=== PATIENT | female | born 1955 | race Caucasian/White ===

== ENCOUNTER → 2016-12-06 | Outpatient (CLI) | payer BC, OTHER | LOC: MW.CHFP 14:31 | PROVIDERS: ATTEND Physician Assistant | DX: R39.9 Unspecified symptoms and signs involving the genitourinary system (principal) | CPT/HCPCS: 81001; 87086 ==

== ENCOUNTER 2017-10-09 02:17 | Observation (INO) | payer OTHER ==
[2017-10-09] MEDS ORDERED: Nitroglycerin 2% Oint 1 GM UD Packet TOP ONE (02:29)
[2017-10-09] MEDS ORDERED: Aspirin 81 MG Tab.Chew PO ONE (02:29)
[2017-10-09] MEDS ORDERED: 50% Dextrose in Water 50 ML Syringe IVPUSH ONE (02:29)
--- NOTE | 2017-10-09 02:29 | EDM.PDOC ---
ED HPI GENERAL MEDICAL PROBLEM - General Chief Complaint: Chest Pain Stated Complaint: CHEST PAIN Time Seen by Provider: 10/09/17 02:27 - History of Present Illness INITIAL COMMENTS - FREE TEXT/NARRATIVE: HISTORY AND PHYSICAL: History of present illness: Patient is 61-year-old female history of hypertension diabetes who states she's also had heart attack who presents with concern chest pain off-and-on all day with palpitations and associated nausea. She denies diaphoresis Review of systems: As per history of present illness and below otherwise all systems reviewed and negative. Past medical history: As per history of present illness and as reviewed below otherwise noncontributory. Surgical history: As per history of present illness and as reviewed below otherwise noncontributory. Social history: No reported history of drug or alcohol abuse. Family history: As per history of present illness and as reviewed below otherwise noncontributory. Physical exam: HEENT: Atraumatic, normocephalic, pupils reactive, mild conjunctival pallor no scleral icterus, mucous membranes moist, throat clear, neck supple, nontender, trachea midline. Lungs: Clear to auscultation, breath sounds equal bilaterally, chest nontender. Heart: S1S2, regular, negative for clicks, rubs, or JVD. Abdomen: Soft, nondistended, nontender. Negative for masses or hepatosplenomegaly. Negative for costovertebral tenderness. Pelvis: Stable nontender. Genitourinary: Deferred. Rectal: Deferred. Extremities: Atraumatic, negative for cords or calf pain. Neurovascular unremarkable. Neuro: Awake, alert, oriented. Cranial nerves II through XII unremarkable. Cerebellum unremarkable. Motor and sensory unremarkable throughout. Exam nonfocal. Diagnostics: CBC CMP PT/INR troponin and BNP chest x-ray EKG Therapeutics: The O2 monitor Nitropaste 1 inch to chest wall aspirin 324 mg by mouth Impression: #1 chest pain #2 history of VA #3 history of diabetes #4 history of hypertension Definitive disposition and diagnosis as appropriate pending reevaluation and review of above. denies pain Pain Score (Numeric/FACES): 0 - Related Data Allergies Allergy/AdvReac Type Severity Reaction Status Date / Time No Known Allergies Allergy Verified 10/09/17 02:23 Home Meds: Home Meds Insulin Aspart [NovoLOG] 20 units PO BID 05/18/14 [History] PARoxetine HCl [Paxil] 40 mg PO BEDTIME 05/20/14 [History] Simvastatin [Zocor] 80 mg PO BEDTIME 05/20/14 [History] Multivitamin [Multi-Vitamin Daily] 1 tab PO DAILY 08/02/14 [History] Potassium Gluconate 595 mg PO DAILY 08/02/14 [History] Potassium Chloride 20 meq PO DAILY #30 tablet.er 08/04/14 [Rx] Aspirin 81 mg PO DAILY 10/09/17 [History] Past Medical History Cardiovascular History: Reports: Heart Failure, High Cholesterol, Hypertension Other Gastrointestinal History: necrosis Psychiatric History: Reports: Anxiety Endocrine/Metabolic History: Reports: Diabetes, Type II Hematologic History: Reports: Anemia, Blood Transfusion(s) Other Hematologic History: 2 blood transfusions in lifetime - Infectious Disease History Infectious Disease History: Reports: Chicken Pox, Measles - Past Surgical History Cardiovascular Surgical History: Reports: None GI Surgical History: Reports: None Endocrine Surgical History: Reports: None Social & Family History - Family History Family Medical History: Noncontributory - Tobacco Use Smoking Status *Q: Current Every Day Smoker Years of Tobacco use: 46 Packs/Tins Daily: 1 Used Tobacco, but Quit: Yes Month Tobacco Last Used: 02/2014 Second Hand Smoke Exposure: No - Alcohol Use Days Per Week of Alcohol Use: 0 - Recreational Drug Use Recreational Drug Use: No ED ROS GENERAL - Review of Systems Review Of Systems: ROS reveals no pertinent complaints other than HPI. ED EXAM, GENERAL - Physical Exam Exam: See Below (dictation) Course - Vital Signs Last Recorded V/S: Last Vital Signs Temp 36.1 C 10/09/17 02:25 Pulse 88 10/09/17 02:25 Resp 18 10/09/17 02:25 BP 191/100 H 10/09/17 02:25 Pulse Ox 100 10/09/17 02:25 - Orders/Labs/Meds Orders: Active Orders 24 hr Category Date Time Status EKG Documentation Completion [RC] STAT Care 10/09/17 02:29 Active Chest 1V Frontal [CR] Stat Exams 10/09/17 02:29 Taken CKMB [CHEM] Stat Lab 10/09/17 02:25 Received COMPREHENSIVE METABOLIC PN,CMP [CHEM] Stat Lab 10/09/17 02:25 Received TROPONIN I [CHEM] Stat Lab 10/09/17 02:25 Received Sodium Chloride 0.9% [Normal Saline] 1,000 ml Med 10/09/17 02:30 Active IV ASDIRECTED Medication Orders Sodium Chloride (Normal Saline) 1,000 mls @ 125 mls/hr IV ASDIRECTED BELLA Last Admin: 10/09/17 02:40 Dose: 125 mls/hr Labs: Laboratory Tests 10/09/17 10/09/17 10/09/17 Range/Units 02:25 02:25 02:27 WBC 6.83 (4.0-11.0) K/uL RBC 3.55 L (4.30-5.90) M/uL Hgb 10.6 L (12.0-16.0) g/dL Hct 30.4 L (36.0-46.0) % MCV 85.6 (80.0-98.0) fL MCH 29.9 (27.0-32.0) pg MCHC 34.9 (31.0-37.0) g/dL RDW Std Deviation 41.0 (28.0-62.0) fl RDW Coeff of Saul 13 (11.0-15.0) % Plt Count 161 (150-400) K/uL MPV 9.00 (7.40-12.00) fL Neut % (Auto) 60.1 (48.0-80.0) % Lymph % (Auto) 26.2 (16.0-40.0) % [place] % (Auto) 7.5 (0.0-15.0) % Eos % (Auto) 5.9 (0.0-7.0) % Baso % (Auto) 0.3 (0.0-1.5) % Neut # (Auto) 4.1 (1.4-5.7) K/uL Lymph # (Auto) 1.8 (0.6-2.4) K/uL [place] # (Auto) 0.5 (0.0-0.8) K/uL Eos # (Auto) 0.4 (0.0-0.7) K/uL Baso # (Auto) 0.0 (0.0-0.1) K/uL Nucleated RBC % 0.0 /100WBC Nucleated RBCs # 0 K/uL POC Glucose 64 (60-110) mg/dL B-Natriuretic Peptide 592 H (<100) PG/ML 10/09/17 Range/Units 03:06 WBC (4.0-11.0) K/uL RBC (4.30-5.90) M/uL Hgb (12.0-16.0) g/dL Hct (36.0-46.0) % MCV (80.0-98.0) fL MCH (27.0-32.0) pg MCHC (31.0-37.0) g/dL RDW Std Deviation (28.0-62.0) fl RDW Coeff of Saul (11.0-15.0) % Plt Count (150-400) K/uL MPV (7.40-12.00) fL Neut % (Auto) (48.0-80.0) % Lymph % (Auto) (16.0-40.0) % [place] % (Auto) (0.0-15.0) % Eos % (Auto) (0.0-7.0) % Baso % (Auto) (0.0-1.5) % Neut # (Auto) (1.4-5.7) K/uL Lymph # (Auto) (0.6-2.4) K/uL [place] # (Auto) (0.0-0.8) K/uL Eos # (Auto) (0.0-0.7) K/uL Baso # (Auto) (0.0-0.1) K/uL Nucleated RBC % /100WBC Nucleated RBCs # K/uL POC Glucose 151 H (60-110) mg/dL B-Natriuretic Peptide (<100) PG/ML Meds: Medications Generic Name Dose Route Start Last Admin Trade Name Freq PRN Reason Stop Dose Admin Sodium Chloride 1,000 mls @ 125 mls/hr 10/09/17 02:30 10/09/17 02:40 Normal Saline IV 125 mls/hr ASDIRECTED BELLA Administration Discontinued Medications Generic Name Dose Route Start Last Admin Trade Name Freq PRN Reason Stop Dose Admin Aspirin 324 mg 10/09/17 02:29 10/09/17 02:41 Aspirin PO 10/09/17 02:30 324 mg ONETIME ONE Administration Dextrose/Water 25 ml 10/09/17 02:29 10/09/17 02:46 Dextrose 50% In Water IVPUSH 10/09/17 02:30 25 ml ONETIME ONE Administration Furosemide 40 mg 10/09/17 03:07 10/09/17 03:11 Lasix IVPUSH 10/09/17 03:08 40 mg NOW ONE Administration Nitroglycerin 1 gm 10/09/17 02:29 10/09/17 02:53 Nitro-Bid 2% TOP 10/09/17 02:30 1 gm ONETIME ONE Administration Departure - Departure Time of Disposition: 03:59 Disposition: Refer to Observation Condition: Good Clinical Impression: Chest pain, CHF (congestive heart failure) - Discharge Information Referrals: Srinivas Rivera MD [Primary Care Provider] - Forms: ED Department Discharge - My Orders Last 24 Hours: My Active Orders 10/09/17 02:25 CKMB [CHEM] Stat COMPREHENSIVE METABOLIC PN,CMP [CHEM] Stat TROPONIN I [CHEM] Stat 10/09/17 02:29 EKG Documentation Completion [RC] STAT Chest 1V Frontal [CR] Stat 10/09/17 02:30 Sodium Chloride 0.9% [Normal Saline] 1,000 ml IV ASDIRECTED - Assessment/Plan Last 24 Hours: My Active Orders 10/09/17 02:25 CKMB [CHEM] Stat COMPREHENSIVE METABOLIC PN,CMP [CHEM] Stat TROPONIN I [CHEM] Stat 10/09/17 02:29 EKG Documentation Completion [RC] STAT Chest 1V Frontal [CR] Stat 10/09/17 02:30 Sodium Chloride 0.9% [Normal Saline] 1,000 ml IV ASDIRECTED
[2017-10-09] MEDS ORDERED: Sodium Chloride 0.9% 1,000 ML IV SCH (02:30)
[2017-10-09] MEDS ORDERED: Furosemide 40 MG/4 ML VIAL IVPUSH ONE (03:07)
[2017-10-09 04:00] LABS: CHLORIDE,CL 108 mmol/L (98-110); SODIUM,NA 142 mmol/L (136-146)
[2017-10-09] MEDS ORDERED: Acetaminophen 325 MG Tab PO PRN (05:32)
[2017-10-09] MEDS ORDERED: Sodium Chloride 0.9% 2.5 ML Syringe FLUSH PRN ×2 (05:33→09:02)
[2017-10-09] MEDS ORDERED: Sodium Chloride 0.9% 10 ML Syringe FLUSH PRN ×2 (05:33→09:02)
[2017-10-09] MEDS: Insulin Aspart 100 Units/ML 3 ML Pen SUBCUT SCH ×3 (07:00→17:09)
--- NOTE | 2017-10-09 08:58 | PCM.HP ---
H&P History of Present Illness - General Date of Service: 10/09/17 Admit Problem/Dx: Admission Diagnosis/Problem Admission Diagnosis/Problem Chest pain - History of Present Illness Initial Comments - Free Text/Narative: This is a 61-year-old female that is presenting with chest pain that is pressure in nature that started last night while the patient went to sleep. Patient states that she awoke with chest discomfort and pressure that was not going away. Patient had taken an aspirin prior to going to sleep. Due to the fact that the pain was not dissipating patient became increasingly anxious as she does have a significant past medical history of anxiety and there is further compounded the symptoms and the patient came in to be assessed in the ER. As stated earlier patient had does have a significant past medical history of anxiety along with a medical history of type 2 diabetes and hyperlipidemia for which she is taking Prozac 16 for the anxiety, insulin for her diabetes and a statin medication for her high cholesterol. Patient states that she does not have any history of congestive heart failure, hypertension, or any known [place] related history. Patient denies any shortness of breath, any dyspnea on exertion , any pillow orthopnea, or any excessive fluid retention type symptoms. Discharge Summary Date of admission: 10/09/2017 Date of discharge: 10/09/2017 Admitting diagnosis: #1. Acute coronary syndrome rule out secondary to chest pain #2. Possible CHF exacerbation #3. Acute versus chronic kidney disease #4. Evaluation of pleural plaques #5. Significant past medical history of type 2 diabetes, hyperlipidemia, anxiety Discharge diagnoses: #1. Acute coronary syndrome ruled out troponins negative 3 #2. Possible congestive heart failure exacerbation versus acute on chronic kidney disease due to elevation of creatinine function and bilateral pitting edema patient to have this assessed in an outpatient setting tomorrow as the patient wanted to be discharged tonight. #3. Bilateral nodules appreciated by radiology on chest CT, recommendation is reevaluation in 3-6 months with another chest CT. #4. Echocardiogram has been done, results will not be in until likely tomorrow. #5. Significant past medical history of type 2 diabetes, hyperlipidemia, anxiety Consultations: None Procedures: None Hospitalization course: Patient was admitted for ACS rule out, troponins were negative 3, patient's chest x-ray did show pleural plaque a CT scan was done which indicated bilateral nodules that simply need to be follow-up in the next 3 -6 months outpatient. Patient also has a nonobstructive nephrolithiasis appreciated on the chest CT. Patient has an echocardiogram done however the results have not come in as of yet. Patient's creatinine function has been the biggest issue at this point in time we are unsure whether her creatinine of greater than 3 is acute versus chronic at this point in time. We have asked the patient to stay 1 night so that we could fully assess the patient's creatinine function and see whether this was chronic in nature. However the patient was pretty adamant about going home and stated that she would follow up with a primary care physician tomorrow in an outpatient setting to ensure that appropriate follow-up has been done for her creatinine function. Concern is the patient has received a total of 80 mg of IV Lasix and if the patient's creatinine function improves and this is likely secondary to congestive heart failure and if the patient's creatinine function stays a same or gets worse then we'll possibly looking at a chronic kidney disease related issue which needs to be closely watched and appropriately followed up with. She will be seeing Dr. Berry tomorrow on 10/10/2017 for assessment of her creatinine function. Disposition on discharge: Home Condition on discharge: Stable Discharge medications: Continuation of home medication Follow-up instructions: Dr. Dae Berry, 10/10/2017 for close follow-up, as well as PCP follow-up at a later time frame. Onset of Symptoms: Reports: Sudden denies pain Pain Score (Numeric/FACES): 0 - Related Data Allergies/Adverse Reactions: Allergies Allergy/AdvReac Type Severity Reaction Status Date / Time No Known Allergies Allergy Verified 10/09/17 02:23 Home Medications: Home Meds Insulin Aspart [NovoLOG] 20 units PO BID 05/18/14 [History] PARoxetine HCl [Paxil] 40 mg PO BEDTIME 05/20/14 [History] Simvastatin [Zocor] 80 mg PO BEDTIME 05/20/14 [History] Multivitamin [Multi-Vitamin Daily] 1 tab PO DAILY 08/02/14 [History] Potassium Gluconate 595 mg PO DAILY 08/02/14 [History] Potassium Chloride 20 meq PO DAILY #30 tablet.er 08/04/14 [Rx] Aspirin 81 mg PO DAILY 10/09/17 [History] Past Medical History HEENT History: Reports: Cataract Cardiovascular History: Reports: Heart Failure, High Cholesterol, Hypertension Respiratory History: Reports: None Other Gastrointestinal History: necrosis Genitourinary History: Reports: None 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: Musculoskeletal History: Reports: None Neurological History: Reports: None Psychiatric History: Reports: Anxiety Endocrine/Metabolic History: Reports: Diabetes, Type II Hematologic History: Reports: Anemia, Blood Transfusion(s) Other Hematologic History: 2 blood transfusions in lifetime Immunologic History: Reports: None Oncologic (Cancer) History: Reports: None Dermatologic History: Reports: None - Infectious Disease History Infectious Disease History: Reports: Chicken Pox, Measles - Past Surgical History Cardiovascular Surgical History: Reports: None GI Surgical History: Reports: None Endocrine Surgical History: Reports: None Social & Family History - Family History Family Medical History: Noncontributory - Tobacco Use Smoking Status *Q: Current Every Day Smoker Years of Tobacco use: 46 Packs/Tins Daily: 1 Used Tobacco, but Quit: Yes Month Tobacco Last Used: 02/2014 Second Hand Smoke Exposure: No - Caffeine Use Caffeine Use: Reports: Soda - Alcohol Use Days Per Week of Alcohol Use: 0 - Recreational Drug Use Recreational Drug Use: No H&P Review of Systems - Review of Systems: Review Of Systems: ROS reveals no pertinent complaints other than HPI. Exam - Exam Exam: See Below - Vital Signs Vital Signs: Last Vital Signs Temp 37.1 C 10/09/17 08:00 Pulse 85 10/09/17 08:00 Resp 18 10/09/17 08:00 BP 144/98 H 10/09/17 08:00 Pulse Ox 97 10/09/17 08:00 Weight: 71.7 kg - Exam General: Alert, Oriented, Cooperative Neck: Supple Lungs: Clear to Auscultation, Normal Respiratory Effort Cardiovascular: Regular Rate, Regular Rhythm GI/Abdominal Exam: Normal Bowel Sounds, Non-Tender Extremities: Normal Inspection, Pedal Edema - Patient Data Lab Results Last 24 hrs: Laboratory Results - last 24 hr 10/09/17 10/09/17 10/09/17 Range/Units 04:56 07:35 08:17 POC Glucose 82 74 (60-110) mg/dL Troponin I < 0.050 (0.000-0.056) ng/mL Result Diagrams: 10/09/17 02:25 10/09/17 02:25 *Q Meaningful Use (ADM) - VTE *Q VTE Criteria *Q: - Stroke *Q Stroke Criteria *Q: - AMI *Q AMI Criteria *Q: Problem List Initiated/Reviewed/Updated: Yes Orders Last 24hrs: Active Orders 24 hr Category Date Time Status Blood Glucose Check, Bedside [RC] TIDAC Care 10/09/17 07:00 Active Telemetry Monitoring [Cardiac Monitoring] [RC] Q8H Care 10/09/17 04:22 Active ADA Diabetic [[employer] Diet] [DIET Diet 10/09/17 Breakfast Active ] TROPONIN I [CHEM] Q6H Lab 10/09/17 14:30 Ordered Acetaminophen [Tylenol] Med 10/09/17 05:32 Active 650 mg PO Q6H PRN Insulin Aspart [NovoLOG] Med 10/09/17 07:30 Active See Protocol SUBCUT TIDAC Sodium Chloride 0.9% [Saline Flush] Med 10/09/17 05:33 Active 10 ml FLUSH ASDIRECTED PRN Sodium Chloride 0.9% [Saline Flush] Med 10/09/17 05:33 Active 2.5 ml FLUSH ASDIRECTED PRN Convert IV to Saline Lock [OM.PC] Routine Oth 10/09/17 05:33 Ordered Medication Orders Acetaminophen (Tylenol) 650 mg PO Q6H PRN PRN Reason: Pain Insulin Aspart (Novolog) 0 unit SUBCUT TIDAC BELLA PRN Reason: Protocol Sodium Chloride (Saline Flush) 10 ml FLUSH ASDIRECTED PRN PRN Reason: Keep Vein Open Sodium Chloride (Saline Flush) 2.5 ml FLUSH ASDIRECTED PRN PRN Reason: Keep Vein Open Assessment/Plan Comment:: This is a 7-year-old female presenting with acute chest pain/pressure overnight here for a acute coronary syndrome rule out and possible CHF component. Assessment/plan: #1. Chest pain pressure type in symptom acute coronary syndrome rule out -Patient to get troponin 3, echocardiogram, EKG/cardiac monitoring to ensure no acute [place]/ischemic related event #2. Possible congestive heart failure component with a mildly elevated BNP -Patient has received 2 doses of Lasix however we will be holding off any further dose of Lasix as the patient does have an elevated creatinine level of greater than 3.0 this is concerning as the patient's 2016 creatinine level was 1.6 we are unsure if the patient has a chronic kidney insufficiency-type symptoms or is this acute in nature. -We have advised the patient that despite the troponins being negative that she should stay overnight to fully evaluate the patient's possible fluid retention versus her possible acute or chronic kidney related dysfunction. However the patient states that she wants to go home if the troponins are negative 3 and follow up with her primary care physician. #3. Acute versus chronic kidney disease with a current creatinine level of greater than 3.0 and the last level being 1.6 in 2016. #4. Evaluation for pleural plaques seen on chest x-ray -Patient to get a CT of the chest to assess for etiology decision will be made once chest CT comes back.
[2017-10-09] MEDS ORDERED: Ondansetron 4 MG/2 ML SDV IVPUSH PRN (09:02)
[2017-10-09] MEDS ORDERED: Morphine 2 MG/ML Syringe IVPUSH PRN (09:02)
[2017-10-09] MEDS ORDERED: Furosemide 40 MG/4 ML VIAL IVPUSH SCH (09:15)
[2017-10-09] MEDS ORDERED: Enoxaparin 40 MG/0.4 ML Syringe SUBCUT SCH (09:15)
[2017-10-09] MEDS ORDERED: Pneumococcal Polyvalent-23 Vaccine 0.5 ML SDV IM ONE ×2 (10:17→14:00)
--- NOTE | 2017-10-09 11:24 | CR ---
EXAM DATE: 10/09/17 PATIENT'S AGE: 61 Patient: LIZET AMAYA Facility: [place], [place] Site . Site : [id number] Study: XRay Chest [id number]/1/[id number] 2:45:39 AM Ordering Physician: Alissa Oliva Final Report: Indication: Chest pain Technique: Chest 1 view Comparison: 05/24/2015. Findings/Impression: Cardiovascular and mediastinum: Unremarkable cardiac size for a portable technique. Lungs and pleural space: Ill-defined bilateral upper lung opacities, increased on the right, and new on the left, suggestive of atypical infiltrates. An 8 millimeter right basilar nodular opacity was not seen on the prior study. Right apical pleural thickening again seen which appears increased in prominence. Recommend CT evaluation. A small left pleural effusion. Bones and soft tissues: No significant change. Dictated by Nathan Arvizu MD @ 10/09/2017 3:32:24 AM Dictated by: Nathan Arvizu MD @ 10/09/2017 03:32:30 (Electronic Signature) Report Signed by Proxy. PLAINVIEW HOSPITALNatalia
--- NOTE | 2017-10-09 15:04 | CT ---
EXAMINATION: CT chest HISTORY: Pleural thickening COMPARISON: Radiograph dated 10/09/2017, 07/22/2014 TECHNIQUE: Continuous axial CT images obtained through the chest without contrast. Coronal and sagitt al reconstructions obtained. FINDINGS: There is moderate scarring within the lung apices. Reticular nodular opacities are noted wi thin the upper lungs bilaterally. There is a discrete 7 x 5 mm nodule along the right minor fissure. A few small nodules are also noted within the lung bases bilaterally. Trace right pleural effusion. T he heart is normal in size without a pericardial effusion. The blood density appears mildly hypodense relative to the myocardium. Coronary artery calcifications are noted. Nonpathologically enlarged med iastinal lymph nodes are noted. No significant hilar fullness. Central airways are clear. Small nonobstructing right nephrolithiasis. Otherwise visualized images of the upper abdomen appear n ormal. No suspicious osseous abnormalities identified. IMPRESSION: 1. Bilateral apical scarring, likely compared to the superior venous chest radiographs. 2. There are several discrete nodules noted bilaterally measuring up to approximately 6 mm. Consider follow-up imaging in 3-6 months with continued monitoring for 2 years of stability. 3. Nonobstructing right nephrolithiasis.
[2017-10-09 15:43] VITALS: BP 152/67
[2017-10-09] MEDS ORDERED: PARoxetine 20 MG Tab PO SCH (21:00)
[2017-10-09] MEDS ORDERED: Simvastatin 40 MG Tab PO SCH (21:00)
--- NOTE | 2017-10-15 10:00 | ECHO ---
EXAM DATE: 10/09/17 PATIENT'S AGE: 61 The echocardiogram report can be seen in this patient's EMR (Electronic Medical Record) in the Reports section. The report has also been scanned into PACs. JUDIE
== END 2017-10-09 19:45 | disposition home or self-care (01) ==
LOC: MW.ED 02:17 → MW.MS 04:00
PROVIDERS: ADMIT Internal Medicine; ATTEND Internal Medicine
DX: R07.89 Other chest pain (principal); E11.9 Type 2 diabetes mellitus without complications; E78.5 Hyperlipidemia, unspecified; R91.1 Solitary pulmonary nodule; F41.9 Anxiety disorder, unspecified; I11.0 Hypertensive heart disease with heart failure; I50.9 Heart failure, unspecified; F17.210 Nicotine dependence, cigarettes, uncomplicated; Z79.4 Long term (current) use of insulin; Z79.899 Other long term (current) drug therapy; Z79.82 Long term (current) use of aspirin
CPT/HCPCS: 71045; 71250; 80053; 81001; 82553; 82962; 83880; 84484; 85025; 90732; 93005; 93306; 96361; 96372; 96374; 96375; 96376; 99285; A9270; G0009; G0378; J1650; J1815; J1940; J7040; J7060; 99283

== ENCOUNTER 2018-08-23 02:29 | Emergency (ER) | payer OTHER ==
[2018-08-23] MEDS ORDERED: Sodium Chloride 0.9% 10 ML Syringe FLUSH PRN (02:54)
[2018-08-23] MEDS ORDERED: Sodium Chloride 0.9% 2.5 ML Syringe FLUSH PRN (02:54)
--- NOTE | 2018-08-23 03:02 | EDM.PDOC ---
ED HPI GENERAL MEDICAL PROBLEM - General Chief Complaint: Diabetic Complaint Stated Complaint: LOW BLOOD SUGAR Time Seen by Provider: 08/23/18 02:50 - History of Present Illness INITIAL COMMENTS - FREE TEXT/NARRATIVE: HISTORY AND PHYSICAL: History of present illness: The patient is a 62-year-old female with a history of hypercholesterolemia and insulin requiring diabetes who also has end-stage renal disease and is on dialysis Friday and Friday, her last one was on Friday and it was within normal limits, who presents via EMS for low blood sugar and 's inability to get the blood sugar up. According to and patient her primary in the clinic Dr. Enriquez changed her insulin on Friday from NovoLog 7030 2025 units every morning and at supper to Basaqlar long acting 28 units every morning and Humalog sliding scale throughout the day. The said she did well Friday afternoon and all day yesterday but last evening he was having more difficulty keeping her sugar up. The patient says she's had no fevers chills cough abdominal pain vomiting or diarrhea and the patient does make urine despite being a dialysis patient. She's had no complaints of any pain and she says she did eat her supper she's not sure how much she ate. called EMS because her blood sugar was in the 30s and he could not get it out. Currently she arrives here after EMS gave her an half an amp of D50 and her blood sugar came up to 110 and here it is in the 80s. Patient is awake alert and interactive here and is at her baseline. According to EMS and the she had no trauma with these low blood sugars. In the computer the patient was here at the end of July for similar episode which is why her insulin was changed. Review of systems: As per history of present illness and below otherwise all systems reviewed and negative. Past medical history: As per history of present illness and as reviewed below otherwise noncontributory. Surgical history: As per history of present illness and as reviewed below otherwise noncontributory. Social history: No reported history of drug or alcohol abuse. Family history: As per history of present illness and as reviewed below otherwise noncontributory. Physical exam: General: Well-developed well-nourished female who is nontoxic and has an overall sallow pale appearance but is not diaphoretic. Vital signs are noted by me. HEENT: Atraumatic, normocephalic, pupils reactive, negative for conjunctival pallor or scleral icterus, mucous membranes moist, throat clear, neck supple, nontender, trachea midline. Lungs: Clear to auscultation, breath sounds equal bilaterally, chest nontender. The patient has a permacath at the left chest wall Heart: S1S2, regular rate and rhythm and there is a loud systolic ejection murmur at the left sternal border. Abdomen: Soft, nondistended, nontender. Negative for masses or hepatosplenomegaly. Negative for costovertebral tenderness. Pelvis: Stable nontender. Genitourinary: Deferred. Rectal: Deferred. Extremities: Atraumatic, negative for cords or calf pain. Neurovascular unremarkable. No pedal edema or leg asymmetry Neuro: Awake, alert, oriented. Cranial nerves II through XII unremarkable. Cerebellum unremarkable. Motor and sensory unremarkable throughout. Exam nonfocal. Diagnostics: Accu-Chek EKG CBC CMP UA if patient is able to produce a urine Therapeutics: IV O2 monitor frequent Accu-Cheks In my research on the computer the patient was here in the emergency department on August 09 for similar hypoglycemic event. I compared today's CBC with that CBC and it is comparable with respect to the WBC count and hemoglobin. Her labs are also comparable with respect to the CMP. Patient did not produce a urine here and I will not hold her for that. I will cancel that test. I discussed with the patient and at bedside options including observation admission or further care here including having a snack. As the patient has held her blood sugar she would like to go home and eat at home and feels comfortable with this care plan. He says that when she goes to dialysis on Friday they can meet with the perinatal educator and discuss potential changes in her insulin regimen. I have advised him to return for any issues or problems Impression: Episode of hypoglycemia, recently changed insulin regimen stable Definitive disposition and diagnosis as appropriate pending reevaluation and review of above. - Related Data Allergies Allergy/AdvReac Type Severity Reaction Status Date / Time No Known Allergies Allergy Verified 08/23/18 04:00 Home Meds: Home Meds PARoxetine HCl [Paxil] 40 mg PO BEDTIME 05/20/14 [History] Simvastatin [Zocor] 80 mg PO BEDTIME 05/20/14 [History] Multivitamin [Multi-Vitamin Daily] 1 tab PO DAILY 08/02/14 [History] Potassium Gluconate 595 mg PO DAILY 08/02/14 [History] Potassium Chloride 20 meq PO DAILY #30 tablet.er 08/04/14 [Rx] Aspirin 81 mg PO DAILY 10/09/17 [History] Iron Polysaccharides Complex [Ferrex 150] 150 mg PO DAILY 30 Days #30 cap [Rx] Furosemide 20 mg PO DAILY #10 tablet 06/23/18 [Rx] Nitrofurantoin Monohyd/M-Cryst [Macrobid 100 mg Capsule] 100 mg PO BID 7 Days # 14 capsule 06/23/18 [Rx] Insuln Asp Prot/Insulin Aspart [NovoLOG Mix 70-30] 20 unit SQ BID 07/23/18 [ History] Past Medical History HEENT History: Reports: Cataract Cardiovascular History: Reports: Heart Failure, High Cholesterol, Hypertension Respiratory History: Reports: None Other Respiratory History: told she has "lung abnormalities", was supposed to have pulmunary fuction testing, but didn't make the appt. Other Gastrointestinal History: necrosis Genitourinary History: Reports: None SKIRT MAKER History: Reports: Musculoskeletal History: Reports: None Neurological History: Reports: None Psychiatric History: Reports: Anxiety, Depression, Mood Swings Endocrine/Metabolic History: Reports: Diabetes, Type II Hematologic History: Reports: Anemia, Blood Transfusion(s) Other Hematologic History: 2 blood transfusions in lifetime Immunologic History: Reports: None Oncologic (Cancer) History: Reports: None Dermatologic History: Reports: None - Infectious Disease History Infectious Disease History: Reports: Chicken Pox - Past Surgical History Cardiovascular Surgical History: Reports: None GI Surgical History: Reports: None Endocrine Surgical History: Reports: None Social & Family History - Family History Family Medical History: Noncontributory - Caffeine Use Caffeine Use: Reports: Coffee ED ROS GENERAL - Review of Systems Review Of Systems: ROS reveals no pertinent complaints other than HPI. ED EXAM GENERAL NO PERIP PULSE - Physical Exam Exam: See Below (See dictation) Course - Vital Signs Last Recorded V/S: Last Vital Signs Temp 36.1 C 08/23/18 02:29 Pulse 64 08/23/18 03:47 Resp 20 08/23/18 03:47 BP 152/77 H 08/23/18 03:47 Pulse Ox 97 08/23/18 03:47 - Orders/Labs/Meds Orders: Active Orders 24 hr Category Date Time Status Blood Glucose Check, Bedside [RC] ONETIME Care 08/23/18 02:55 Active Cardiac Monitoring [RC] . DIRECTED Care 08/23/18 02:54 Active EKG Documentation Completion [RC] STAT Care 08/23/18 02:54 Active Oxygen Therapy, ED [RC] ASDIRECTED Care 08/23/18 02:54 Active Pulse Oximetry [RC] ASDIRECTED Care 08/23/18 02:54 Active UA W/MICROSCOPIC [URIN] Stat Lab 08/23/18 02:55 Ordered Sodium Chloride 0.9% [Saline Flush] Med 08/23/18 02:54 Active 10 ml FLUSH ASDIRECTED PRN Sodium Chloride 0.9% [Saline Flush] Med 08/23/18 02:54 Active 2.5 ml FLUSH ASDIRECTED PRN Saline Lock Insert [OM.PC] Stat Oth 08/23/18 02:54 Ordered Medication Orders Sodium Chloride (Saline Flush) 10 ml FLUSH ASDIRECTED PRN PRN Reason: Keep Vein Open Sodium Chloride (Saline Flush) 2.5 ml FLUSH ASDIRECTED PRN PRN Reason: Keep Vein Open Labs: Laboratory Tests 08/23/18 08/23/18 08/23/18 Range/Units 03:15 03:15 03:21 WBC 2.34 L (4.0-11.0) K/uL RBC 3.38 L (4.30-5.90) M/uL Hgb 9.9 L (12.0-16.0) g/dL Hct 32.1 L (36.0-46.0) % MCV 95.0 (80.0-98.0) fL MCH 29.3 (27.0-32.0) pg MCHC 30.8 L (31.0-37.0) g/dL RDW Std Deviation 54.5 (28.0-62.0) fl RDW Coeff of Saul 16 H (11.0-15.0) % Plt Count 114 L (150-400) K/uL MPV 10.90 (7.40-12.00) fL Neut % (Auto) 68.9 (48.0-80.0) % Lymph % (Auto) 20.5 (16.0-40.0) % Sargent % (Auto) 6.8 (0.0-15.0) % Eos % (Auto) 3.4 (0.0-7.0) % Baso % (Auto) 0.4 (0.0-1.5) % Neut # (Auto) 1.6 (1.4-5.7) K/uL Lymph # (Auto) 0.5 L (0.6-2.4) K/uL Sargent # (Auto) 0.2 (0.0-0.8) K/uL Eos # (Auto) 0.1 (0.0-0.7) K/uL Baso # (Auto) 0.0 (0.0-0.1) K/uL Nucleated RBC % 0.0 /100WBC Nucleated RBCs # 0 K/uL Sodium 140 (136-145) mmol/L Potassium 4.2 (3.5-5.1) mmol/L Chloride 102 (98-107) mmol/L Carbon Dioxide 32.1 H (21.0-32.0) mmol/L BUN 33 H (7.0-18.0) mg/dL Creatinine 2.8 H (0.6-1.0) mg/dL Est Cr Clr Drug Dosing TNP Estimated GFR (MDRD) 17.2 ml/min Glucose 84 (74-106) mg/dL POC Glucose 88 (60-110) mg/dL Calcium 8.8 (8.5-10.1) mg/dL Total Bilirubin 0.4 (0.2-1.0) mg/dL AST 46 H (15-37) IU/L ALT 43 (14-63) IU/L Alkaline Phosphatase 345 H (46-116) U/L Total Protein 7.4 (6.4-8.2) g/dL Albumin 2.4 L (3.4-5.0) g/dL Globulin 5.0 H (2.6-4.0) g/dL Albumin/Globulin Ratio 0.5 L (0.9-1.6) Meds: Medications Generic Name Dose Route Start Last Admin Trade Name Freq PRN Reason Stop Dose Admin Sodium Chloride 10 ml 08/23/18 02:54 Saline Flush FLUSH ASDIRECTED PRN Keep Vein Open Sodium Chloride 2.5 ml 08/23/18 02:54 Saline Flush FLUSH ASDIRECTED PRN Keep Vein Open Departure - Departure Time of Disposition: 04:09 Disposition: Home, Self-Care 01 Condition: Good Clinical Impression: Hypoglycemia, Medication course changed - Discharge Information Referrals: Blu Enriquez MD [Primary Care Provider] - Forms: ED Department Discharge Additional Instructions: The following information is given to patients seen in the emergency department who are being discharged to home. This information is to outline your options for follow-up care. We provide all patients seen in our emergency department with a follow-up referral. The need for follow-up, as well as the timing and circumstances, are variable depending upon the specifics of your emergency department visit. If you don't have a primary care physician on staff, we will provide you with a referral. We always advise you to contact your personal physician following an emergency department visit to inform them of the circumstance of the visit and for follow-up with them and/or the need for any referrals to a consulting specialist. The emergency department will also refer you to a specialist when appropriate. This referral assures that you have the opportunity for followup care with a specialist. All of these measure are taken in an effort to provide you with optimal care, which includes your followup. Under all circumstances we always encourage you to contact your private physician who remains a resource for coordinating your care. When calling for followup care, please make the office aware that this follow-up is from your recent emergency room visit. If for any reason you are refused follow-up, please contact the [facility] emergency department at and ask to speak to the emergency department charge nurse. [facility] Primary care- [place] [address] Please continue to closely monitor your blood sugar every 2-3 hours and eat small frequent meals. Continue your new regimen of insulin but please have a dialogue with the perinatal educator on Friday during her dialysis about today's events. Please follow-up with Dr. Enriquez in the clinic for further care and evaluation and return here as needed and as discussed - My Orders Last 24 Hours: My Active Orders 08/23/18 02:54 Cardiac Monitoring [RC] . DIRECTED EKG Documentation Completion [RC] STAT Oxygen Therapy, ED [RC] ASDIRECTED Pulse Oximetry [RC] ASDIRECTED Sodium Chloride 0.9% [Saline Flush] 10 ml FLUSH ASDIRECTED PRN Sodium Chloride 0.9% [Saline Flush] 2.5 ml FLUSH ASDIRECTED PRN Saline Lock Insert [OM.PC] Stat 08/23/18 02:55 Blood Glucose Check, Bedside [RC] ONETIME UA W/MICROSCOPIC [URIN] Stat - Assessment/Plan Last 24 Hours: My Active Orders 08/23/18 02:54 Cardiac Monitoring [RC] . DIRECTED EKG Documentation Completion [RC] STAT Oxygen Therapy, ED [RC] ASDIRECTED Pulse Oximetry [RC] ASDIRECTED Sodium Chloride 0.9% [Saline Flush] 10 ml FLUSH ASDIRECTED PRN Sodium Chloride 0.9% [Saline Flush] 2.5 ml FLUSH ASDIRECTED PRN Saline Lock Insert [OM.PC] Stat 08/23/18 02:55 Blood Glucose Check, Bedside [RC] ONETIME UA W/MICROSCOPIC [URIN] Stat
[2018-08-23 03:50] LABS: CHLORIDE,CL 102 mmol/L (98-107); SODIUM,NA 140 mmol/L (136-145)
[2018-08-23 04:33] VITALS: BP 149/85
== END 2018-08-23 04:44 | disposition home or self-care (01) ==
LOC: MW.ED 02:29
DX: E11.649 Type 2 diabetes mellitus with hypoglycemia without coma (principal); I13.2 Hypertensive heart and chronic kidney disease with heart failure and with stage 5 chronic kidney disease, or end stage renal disease; I50.9 Heart failure, unspecified; N18.6 End stage renal disease; F41.9 Anxiety disorder, unspecified; F32.9 Major depressive disorder, single episode, unspecified; E78.00 Pure hypercholesterolemia, unspecified; E11.22 Type 2 diabetes mellitus with diabetic chronic kidney disease; Z79.899 Other long term (current) drug therapy; Z79.4 Long term (current) use of insulin; Z99.2 Dependence on renal dialysis
CPT/HCPCS: 36415; 80053; 82962; 85025; 93005; 99283; 99285-25

== ENCOUNTER 2018-09-22 13:42 | Emergency (ER) | payer OTHER ==
[2018-09-22] MEDS ORDERED: Sodium Chloride 0.9% 2.5 ML Syringe FLUSH PRN (14:03)
[2018-09-22] MEDS ORDERED: Sodium Chloride 0.9% 10 ML Syringe FLUSH PRN (14:03)
--- NOTE | 2018-09-22 14:10 | EDM.PDOC ---
ED HPI GENERAL MEDICAL PROBLEM - General Chief Complaint: Skin Complaint Stated Complaint: URINARY ISSUES Time Seen by Provider: 09/22/18 13:47 Source of Information: Reports: Patient History Limitations: Reports: No Limitations - History of Present Illness INITIAL COMMENTS - FREE TEXT/NARRATIVE: History of present illness: []Patient is a dialysis patient has not been able to complete full dialysis due to skin irritation he describes as a "creepy crawlies". Dr. Sheikh is her director of maternity services and wanted her to come to the ER to be evaluated. Review of systems: As per history of present illness and below otherwise all systems reviewed and negative. Past medical history: As per history of present illness and as reviewed below otherwise noncontributory. Surgical history: As per history of present illness and as reviewed below otherwise noncontributory. Social history: No reported history of drug or alcohol abuse. Family history: As per history of present illness and as reviewed below otherwise noncontributory. Physical exam: General: Well developed, well nourished in NAD HEENT: Atraumatic, normocephalic, pupils reactive, negative for conjunctival pallor or scleral icterus, mucous membranes moist, throat clear, neck supple, nontender, trachea midline. Lungs: Clear to auscultation, breath sounds equal bilaterally, chest nontender. Heart: S1S2, regular, negative for clicks, rubs, or JVD. Abdomen: NABS, Soft, nondistended, nontender. Negative for masses or hepatosplenomegaly. Negative for costovertebral tenderness. Pelvis: Stable nontender. Genitourinary: Deferred. Rectal: Deferred. Extremities: Scratching abrasions on her upper extremities, negative for cords or calf pain. Neurovascular unremarkable. Neuro: Awake, alert, oriented. Cranial nerves II through XII unremarkable. Cerebellum unremarkable. Motor and sensory unremarkable throughout. Exam nonfocal. Skin:warm and dry Diagnostics: CBC, chemistry, phosphorus levels Therapeutics: Neurontin insulin ED Course: Discussed with patients adgitation while having dialysis and he requested she be started on Neurontin at bedtime and prior to dialysis. Impression: Screening exam Prescriptions: Neurontin Plan: Follow-up primary care and/or nephrology. Definitive disposition and diagnosis as appropriate pending reevaluation and review of above. - Related Data Allergies Allergy/AdvReac Type Severity Reaction Status Date / Time No Known Allergies Allergy Verified 09/22/18 14:09 Home Meds: Home Meds PARoxetine HCl [Paxil] 40 mg PO BEDTIME 05/20/14 [History] Simvastatin [Zocor] 80 mg PO BEDTIME 05/20/14 [History] Multivitamin [Multi-Vitamin Daily] 1 tab PO DAILY 08/02/14 [History] Aspirin 81 mg PO DAILY 10/09/17 [History] Iron Polysaccharides Complex [Ferrex 150] 150 mg PO DAILY 30 Days #30 cap [Rx] Acetaminophen [Tylenol Extra Strength] 1 tab PO Q4HR PRN 08/23/18 [History] Albuterol Sulfate [Proair Hfa] 2 puff INH Q4HR PRN 08/23/18 [History] Glycopyrrolate/Formoterol Fum [Bevespi Aerosphere Inhaler] 2 puff IN BID [History] Insulin Glargine,Hum.Rec.Anlog [Basaglar Kwikpen U-100] 28 units SQ QAM [History] Insulin Lispro [HumaLOG] 5 units SQ BID 09/12/18 [History] Gabapentin [Neurontin] 100 mg PO ASDIRECTED #30 capsule 09/22/18 [Rx] Past Medical History HEENT History: Reports: Cataract Cardiovascular History: Reports: Heart Failure, High Cholesterol, Hypertension Respiratory History: Reports: None Other Respiratory History: told she has "lung abnormalities", was supposed to have pulmunary fuction testing, but didn't make the appt. 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 CAMPAIGN SPECIALIST History: Reports: Musculoskeletal History: Reports: None Neurological History: Reports: None Psychiatric History: Reports: Anxiety, Depression, Mood Swings Endocrine/Metabolic History: Reports: Diabetes, Type II Hematologic History: Reports: Anemia, Blood Transfusion(s) Other Hematologic History: 2 blood transfusions in lifetime Immunologic History: Reports: None Oncologic (Cancer) History: Reports: None Dermatologic History: Reports: None - Infectious Disease History Infectious Disease History: Reports: Chicken Pox - Past Surgical History Cardiovascular Surgical History: Reports: None GI Surgical History: Reports: None Endocrine Surgical History: Reports: None Social & Family History - Family History Family Medical History: Noncontributory - Caffeine Use Caffeine Use: Reports: Coffee ED ROS GENERAL - Review of Systems Review Of Systems: ROS reveals no pertinent complaints other than HPI. ED EXAM, SKIN/RASH Exam: See Below (See history of present illness) Course - Vital Signs Last Recorded V/S: Last Vital Signs Temp 96.1 F 09/22/18 14:10 Pulse 87 09/22/18 14:10 Resp 15 09/22/18 14:10 BP 182/102 H 09/22/18 14:10 Pulse Ox 98 09/22/18 14:10 - Orders/Labs/Meds Orders: Active Orders 24 hr Category Date Time Status GLUCOSE,POC [POC] Routine Lab 09/22/18 15:57 Received Sodium Chloride 0.9% [Saline Flush] Med 09/22/18 14:03 Active 10 ml FLUSH ASDIRECTED PRN Sodium Chloride 0.9% [Saline Flush] Med 09/22/18 14:03 Active 2.5 ml FLUSH ASDIRECTED PRN Saline Lock Insert [OM.PC] Stat Oth 09/22/18 14:03 Ordered Medication Orders Sodium Chloride (Saline Flush) 10 ml FLUSH ASDIRECTED PRN PRN Reason: Keep Vein Open Sodium Chloride (Saline Flush) 2.5 ml FLUSH ASDIRECTED PRN PRN Reason: Keep Vein Open Labs: Laboratory Tests 09/22/18 09/22/18 09/22/18 Range/Units 14:15 14:15 15:38 WBC 3.84 L (4.0-11.0) K/uL RBC 3.66 L (4.30-5.90) M/uL Hgb 10.7 L (12.0-16.0) g/dL Hct 33.6 L (36.0-46.0) % MCV 91.8 (80.0-98.0) fL MCH 29.2 (27.0-32.0) pg MCHC 31.8 (31.0-37.0) g/dL RDW Std Deviation 53.5 (28.0-62.0) fl RDW Coeff of Saul 16 H (11.0-15.0) % Plt Count 146 L (150-400) K/uL MPV 10.40 (7.40-12.00) fL Neut % (Auto) 74.3 (48.0-80.0) % Lymph % (Auto) 13.5 L (16.0-40.0) % Jessamine % (Auto) 8.1 (0.0-15.0) % Eos % (Auto) 3.6 (0.0-7.0) % Baso % (Auto) 0.5 (0.0-1.5) % Neut # (Auto) 2.9 (1.4-5.7) K/uL Lymph # (Auto) 0.5 L (0.6-2.4) K/uL Jessamine # (Auto) 0.3 (0.0-0.8) K/uL Eos # (Auto) 0.1 (0.0-0.7) K/uL Baso # (Auto) 0.0 (0.0-0.1) K/uL Nucleated RBC % 0.0 /100WBC Nucleated RBCs # 0 K/uL Sodium 130 L (136-145) mmol/L Potassium 4.1 (3.5-5.1) mmol/L Chloride 94 L (98-107) mmol/L Carbon Dioxide 24.2 (21.0-32.0) mmol/L BUN 59 H (7.0-18.0) mg/dL Creatinine 3.6 H (0.6-1.0) mg/dL Est Cr Clr Drug Dosing 16.55 mL/min Estimated GFR (MDRD) 12.9 ml/min Glucose 469 H (74-106) mg/dL POC Glucose 448 H (60-110) mg/dL Calcium 8.4 L (8.5-10.1) mg/dL Phosphorus 8.6 H (2.6-4.7) mg/dL Total Bilirubin 0.5 (0.2-1.0) mg/dL AST 66 H (15-37) IU/L ALT 75 H (14-63) IU/L Alkaline Phosphatase 762 H (46-116) U/L Total Protein 7.2 (6.4-8.2) g/dL Albumin 2.2 L (3.4-5.0) g/dL Globulin 5.0 H (2.6-4.0) g/dL Albumin/Globulin Ratio 0.4 L (0.9-1.6) Meds: Medications Generic Name Dose Route Start Last Admin Trade Name Freq PRN Reason Stop Dose Admin Sodium Chloride 10 ml 09/22/18 14:03 Saline Flush FLUSH ASDIRECTED PRN Keep Vein Open Sodium Chloride 2.5 ml 09/22/18 14:03 Saline Flush FLUSH ASDIRECTED PRN Keep Vein Open Discontinued Medications Generic Name Dose Route Start Last Admin Trade Name Freq PRN Reason Stop Dose Admin Gabapentin 100 mg 09/22/18 14:16 09/22/18 14:38 Neurontin PO 09/22/18 14:17 100 mg ONETIME ONE Administration Insulin Human Regular 6 unit 09/22/18 15:23 09/22/18 15:38 Novolin R IVPUSH 09/22/18 15:24 6 units ONETIME ONE Administration Protocol Departure - Departure Time of Disposition: 15:59 Disposition: Home, Self-Care 01 Condition: Good Clinical Impression: Encounter for medical screening examination - Discharge Information *PRESCRIPTION DRUG MONITORING PROGRAM REVIEWED*: No *COPY OF PRESCRIPTION DRUG MONITORING REPORT IN PATIENT IRVING: No Prescriptions: Gabapentin [Neurontin] 100 mg PO ASDIRECTED #30 capsule Forms: ED Department Discharge Additional Instructions: The following information is given to patients seen in the emergency department who are being discharged to home. This information is to outline your options for follow-up care. We provide all patients seen in our emergency department with a follow-up referral. The need for follow-up, as well as the timing and circumstances, are variable depending upon the specifics of your emergency department visit. If you don't have a primary care physician on staff, we will provide you with a referral. We always advise you to contact your personal physician following an emergency department visit to inform them of the circumstance of the visit and for follow-up with them and/or the need for any referrals to a consulting specialist. The emergency department will also refer you to a specialist when appropriate. This referral assures that you have the opportunity for follow-up care with a specialist. All of these measure are taken in an effort to provide you with optimal care, which includes your follow-up. Under all circumstances we always encourage you to contact your private physician who remains a resource for coordinating your care. When calling for follow-up care, please make the office aware that this follow-up is from your recent emergency room visit. If for any reason you are refused follow-up, please contact the [facility] Emergency Department at and asked to speak to the emergency department charge nurse. [facility] [address] [place] [id number] - My Orders Last 24 Hours: My Active Orders 09/22/18 14:03 Sodium Chloride 0.9% [Saline Flush] 10 ml FLUSH ASDIRECTED PRN Sodium Chloride 0.9% [Saline Flush] 2.5 ml FLUSH ASDIRECTED PRN Saline Lock Insert [OM.PC] Stat 09/22/18 15:57 GLUCOSE,POC [POC] Routine - Assessment/Plan Last 24 Hours: My Active Orders 09/22/18 14:03 Sodium Chloride 0.9% [Saline Flush] 10 ml FLUSH ASDIRECTED PRN Sodium Chloride 0.9% [Saline Flush] 2.5 ml FLUSH ASDIRECTED PRN Saline Lock Insert [OM.PC] Stat 09/22/18 15:57 GLUCOSE,POC [POC] Routine
[2018-09-22 14:13] VITALS: BP 182/102
[2018-09-22] MEDS ORDERED: Gabapentin 100 MG Cap PO ONE (14:16)
[2018-09-22] MEDS ORDERED: Insulin Regular, Human 100 Units/ML 10 ML Vial IVPUSH ONE (15:23)
== END 2018-09-22 16:05 | disposition home or self-care (01) ==
LOC: MW.ED 13:42
DX: S40.812A Abrasion of left upper arm, initial encounter (principal); S40.811A Abrasion of right upper arm, initial encounter; E11.9 Type 2 diabetes mellitus without complications; I11.0 Hypertensive heart disease with heart failure; I50.9 Heart failure, unspecified; Z79.4 Long term (current) use of insulin; Z99.2 Dependence on renal dialysis; Z79.899 Other long term (current) drug therapy; Z79.82 Long term (current) use of aspirin; X58.XXXA Exposure to other specified factors, initial encounter
CPT/HCPCS: 36415; 80053; 82962; 84100; 85025; 99283; A9270; J1815-GY

== ENCOUNTER 2018-11-24 15:35 | Emergency (ER) | payer OTHER ==
--- NOTE | 2018-11-24 17:11 | EDM.PDOC ---
ED HPI GENERAL MEDICAL PROBLEM - General Chief Complaint: Skin Complaint Stated Complaint: RASH Time Seen by Provider: 11/24/18 15:36 Source of Information: Reports: Patient History Limitations: Reports: No Limitations - History of Present Illness INITIAL COMMENTS - FREE TEXT/NARRATIVE: HISTORY AND PHYSICAL: History of present illness: Patient is a 63-year-old female who presents to the ED today with concern of a rash started on her thighs 1 week. Patient states the rash does not itch him a hurt, or bother her. She states that she just noticed that they have increased daily. Patient does have end-stage renal disease and is on dialysis. Patient states she also has a history of congestive heart failure. Patient denies fever, chills, chest pain, shortness of breath, or cough. Denies headache, neck stiff ness, change in vision, syncope, or near syncope. Denies nausea, vomiting, abdominal pain, diarrhea, constipation, or dysuria. Has not noted any blood in urine or stool. Patient has been eating and drinking appropriately. Review of systems: As per history of present illness and below otherwise all systems reviewed and negative. Past medical history: As per history of present illness and as reviewed below otherwise noncontributory. Surgical history: As per history of present illness and as reviewed below otherwise noncontributory. Social history: See social history for further information Family history: As per history of present illness and as reviewed below otherwise noncontributory. Physical exam: General: Patient is alert, oriented, and in no acute distress. Patient sitting comfortably on exam table. HEENT: Atraumatic, normocephalic, pupils equal and reactive bilaterally, negative for conjunctival pallor or scleral icterus, mucous membranes moist, TMs normal bilaterally, throat clear, neck supple, nontender, trachea midline. No drooling or trismus noted. No meningeal signs. No hot potato voice noted. Lungs: Clear to auscultation, breath sounds equal bilaterally, chest nontender. Heart: S1S2, regular rate and rhythm without overt murmur Abdomen: Soft, nondistended, nontender. Negative for masses or hepatosplenomegaly. Negative for costovertebral tenderness. Pelvis: Stable nontender. Genitourinary: Deferred. Rectal: Deferred. Skin: There are several small area/patches of petechial rash on patient's thighs in crops about 2mm in size. Non palpable. No open areas of the skin. There is also 1 area on patients right wrist of similar appearance. Extremities: See skin. Atraumatic, negative for cords or calf pain. Neurovascular unremarkable. Neuro: Awake, alert, oriented. Cranial nerves II through XII unremarkable. Cerebellum unremarkable. Motor and sensory unremarkable throughout. Exam nonfocal. Notes: Dr. Maxwell was directly involved in patients care. After second interview the patient, she states that she did forget her morning insulin today. Patient was offered admission but she declines at this time. Discussed the importance for follow-up with her primary care provider. Voices understanding and is agreeable to plan of care. Denies any further questions or concerns at this time. Diagnostics: CBC, CMP, PT/INR, PTT Therapeutics: None Prescription: None Impression: Thrombocytopenia with petechial rash Elevated glucose h/o T2DM Plan: 1. Follow up with her primary care provider as discussed. 2. Return to ED as needed and as discussed. Definitive disposition and diagnosis as appropriate pending reevaluation and review of above. back Pain Score (Numeric/FACES): 5 - Related Data Allergies Allergy/AdvReac Type Severity Reaction Status Date / Time No Known Allergies Allergy Verified 09/22/18 14:09 Home Meds: Home Meds PARoxetine HCl [Paxil] 40 mg PO BEDTIME 05/20/14 [History] Simvastatin [Zocor] 80 mg PO BEDTIME 05/20/14 [History] Multivitamin [Multi-Vitamin Daily] 1 tab PO DAILY 08/02/14 [History] Aspirin 81 mg PO DAILY 10/09/17 [History] Iron Polysaccharides Complex [Ferrex 150] 150 mg PO DAILY 30 Days #30 cap [Rx] Acetaminophen [Tylenol Extra Strength] 1 tab PO Q4HR PRN 08/23/18 [History] Albuterol Sulfate [Proair Hfa] 2 puff INH Q4HR PRN 08/23/18 [History] Glycopyrrolate/Formoterol Fum [Bevespi Aerosphere Inhaler] 2 puff IN BID [History] Insulin Glargine,Hum.Rec.Anlog [Basaglar Kwikpen U-100] 28 units SQ QAM [History] Insulin Lispro [HumaLOG] 5 units SQ BID 09/12/18 [History] Gabapentin [Neurontin] 100 mg PO ASDIRECTED #30 capsule 09/22/18 [Rx] Past Medical History HEENT History: Reports: Cataract Cardiovascular History: Reports: Heart Failure, High Cholesterol, Hypertension Respiratory History: Reports: None Other Respiratory History: told she has "lung abnormalities", was supposed to have pulmunary fuction testing, but didn't make the appt. 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: Musculoskeletal History: Reports: None, Back Pain, Chronic Neurological History: Reports: None Psychiatric History: Reports: Anxiety, Depression, Mood Swings Endocrine/Metabolic History: Reports: Diabetes, Type II Hematologic History: Reports: Anemia, Blood Transfusion(s) Other Hematologic History: 2 blood transfusions in lifetime Immunologic History: Reports: None Oncologic (Cancer) History: Reports: None Dermatologic History: Reports: None - Infectious Disease History Infectious Disease History: Reports: Chicken Pox, Measles, Shingles - Past Surgical History Head Surgeries/Procedures: Reports: None Cardiovascular Surgical History: Reports: None GI Surgical History: Reports: None Endocrine Surgical History: Reports: None Social & Family History - Family History Family Medical History: Noncontributory - Tobacco Use Smoking Status *Q: Current Every Day Smoker Years of Tobacco use: 48 Packs/Tins Daily: 1 - Caffeine Use Caffeine Use: Reports: Coffee - Recreational Drug Use Recreational Drug Use: No ED ROS GENERAL - Review of Systems Review Of Systems: ROS reveals no pertinent complaints other than HPI. ED EXAM, SKIN/RASH Exam: See Below (See dictation) Course - Vital Signs Last Recorded V/S: Last Vital Signs Temp 36.2 C 11/24/18 17:39 Pulse 86 11/24/18 17:39 Resp 16 11/24/18 17:39 BP 182/89 H 11/24/18 17:39 Pulse Ox 96 11/24/18 17:39 - Orders/Labs/Meds Labs: Laboratory Tests 11/24/18 11/24/18 11/24/18 Range/Units 16:22 16:22 16:22 WBC 5.99 (4.0-11.0) K/uL RBC 3.53 L (4.30-5.90) M/uL Hgb 10.8 L (12.0-16.0) g/dL Hct 32.5 L (36.0-46.0) % MCV 92.1 (80.0-98.0) fL MCH 30.6 (27.0-32.0) pg MCHC 33.2 (31.0-37.0) g/dL RDW Std Deviation 51.0 (28.0-62.0) fl RDW Coeff of Saul 15 (11.0-15.0) % Plt Count 123 L (150-400) K/uL MPV 10.90 (7.40-12.00) fL Neut % (Auto) 86.5 H (48.0-80.0) % Lymph % (Auto) 7.0 L (16.0-40.0) % Harvey % (Auto) 4.5 (0.0-15.0) % Eos % (Auto) 1.8 (0.0-7.0) % Baso % (Auto) 0.2 (0.0-1.5) % Neut # (Auto) 5.2 (1.4-5.7) K/uL Lymph # (Auto) 0.4 L (0.6-2.4) K/uL Harvey # (Auto) 0.3 (0.0-0.8) K/uL Eos # (Auto) 0.1 (0.0-0.7) K/uL Baso # (Auto) 0.0 (0.0-0.1) K/uL Nucleated RBC % 0.0 /100WBC Nucleated RBCs # 0 K/uL INR 1.11 APTT 27.3 (18.6-31.3) SEC Sodium 135 L (136-145) mmol/L Potassium 3.2 L (3.5-5.1) mmol/L Chloride 94 L (98-107) mmol/L Carbon Dioxide 31.7 (21.0-32.0) mmol/L BUN 27 H (7.0-18.0) mg/dL Creatinine 3.3 H (0.6-1.0) mg/dL Est Cr Clr Drug Dosing 15.91 mL/min Estimated GFR (MDRD) 14.2 ml/min Glucose 574 H* (74-106) mg/dL Calcium 8.0 L (8.5-10.1) mg/dL Total Bilirubin 1.2 H (0.2-1.0) mg/dL AST 33 (15-37) IU/L ALT 28 (14-63) IU/L Alkaline Phosphatase 762 H (46-116) U/L Total Protein 7.7 (6.4-8.2) g/dL Albumin 2.2 L (3.4-5.0) g/dL Globulin 5.5 H (2.6-4.0) g/dL Albumin/Globulin Ratio 0.4 L (0.9-1.6) Departure - Departure Time of Disposition: 17:48 Disposition: Home, Self-Care 01 Clinical Impression: Thrombocytopenia, Petechial rash, Elevated glucose - Discharge Information Referrals: Sal Jorgensen MD [Primary Care Provider] - Forms: ED Department Discharge Additional Instructions: The following information is given to patients seen in the emergency department who are being discharged to home. This information is to outline your options for follow-up care. We provide all patients seen in our emergency department with a follow-up referral. The need for follow-up, as well as the timing and circumstances, are variable depending upon the specifics of your emergency department visit. If you don't have a primary care physician on staff, we will provide you with a referral. We always advise you to contact your personal physician following an emergency department visit to inform them of the circumstance of the visit and for follow-up with them and/or the need for any referrals to a consulting specialist. The emergency department will also refer you to a specialist when appropriate. This referral assures that you have the opportunity for follow-up care with a specialist. All of these measure are taken in an effort to provide you with optimal care, which includes your follow-up. Under all circumstances we always encourage you to contact your private physician who remains a resource for coordinating your care. When calling for follow-up care, please make the office aware that this follow-up is from your recent emergency room visit. If for any reason you are refused follow-up, please contact the [facility] Emergency Department at and asked to speak to the emergency department charge nurse. [facility] [address] [place] [id number] [facility] [address] [place] [id number] 1. Follow up with her primary care provider as discussed. 2. Return to ED as needed and as discussed.
[2018-11-24 17:40] VITALS: BP 182/89
== END 2018-11-24 18:03 | disposition home or self-care (01) ==
LOC: MW.ED 15:35
DX: D69.6 Thrombocytopenia, unspecified (principal); I11.0 Hypertensive heart disease with heart failure; I50.9 Heart failure, unspecified; E11.65 Type 2 diabetes mellitus with hyperglycemia; F17.210 Nicotine dependence, cigarettes, uncomplicated; E78.00 Pure hypercholesterolemia, unspecified; F41.9 Anxiety disorder, unspecified; F32.9 Major depressive disorder, single episode, unspecified; Z79.82 Long term (current) use of aspirin; Z79.899 Other long term (current) drug therapy; Z79.4 Long term (current) use of insulin
CPT/HCPCS: 36415; 80053; 85025; 85610; 85730; 99283

== ENCOUNTER 2018-11-25 23:42 | Emergency (ER) | payer OTHER ==
[2018-11-26] MEDS ORDERED: Piperacillin/Tazobactam 3.375 GM in Sodium Chloride 0.9% 50 ML IV ONE (00:56)
--- NOTE | 2018-11-26 00:57 | CR ---
INDICATION: Altered mental status TECHNIQUE: Chest radiograph 1 view COMPARISON: 09/12/2018 FINDINGS: Moderate degradation of image quality noted due to body habitus. Mediastinum: The mediastinum is normal in appearance. The heart silhouette is normal in size and morphology. Right IJ dialysis catheter is noted. Lung: Pleural-parenchymal scarring seen in the apices bilaterally without interval change. Interstitial and vascular prominence is present in both lungs bilaterally which may be due to interstitial lung disease and/or interstitial edema. No pneumothorax is identified. Musculoskeletal: Unremarkable for age. IMPRESSION: 1. Interstitial and vascular prominence is present in both lungs bilaterally which may be due to interstitial lung disease and/or interstitial edema. The appearance is overall similar to prior examination. Dictated by Mathew Waters MD @ 11/26/2018 12:56:16 AM Dictated by: Mathew Waters MD @ 11/26/2018 00:56:22 (Electronically Signed)
--- NOTE | 2018-11-26 00:57 | CT ---
INDICATION: Altered mental status TECHNIQUE: CT Head without i.v. contrast. COMPARISON: None FINDINGS: CSF space: The ventricles are normal for age. Brain: No evidence of mass, acute infarction or hemorrhage is seen. No mass-effect or midline shift is seen. The brain parenchyma is otherwise normal in appearance with preservation of the kim-white matter junction. Calvarium: The visualized paranasal sinuses are well aerated. The mastoid air cells are clear. The visualized orbits are grossly unremarkable. The calvarium is unremarkable in appearance with no fractures identified. IMPRESSION: 1. No evidence of acute infarction, intracranial hemorrhage, or mass-effect seen. Please note that all CT scans at this facility use dose modulation, iterative reconstruction, and/or weight-based dosing when appropriate to reduce radiation dose to as low as reasonably achievable. Dictated by: Mathew Waters MD @ 11/26/2018 00:55:24 (Electronically Signed)
--- NOTE | 2018-11-26 01:02 | EDM.PDOC ---
ED HPI GENERAL MEDICAL PROBLEM - General Chief Complaint: Diabetic Complaint Stated Complaint: LOW BLOOD SUGAR Time Seen by Provider: 11/26/18 00:25 - History of Present Illness INITIAL COMMENTS - FREE TEXT/NARRATIVE: HISTORY AND PHYSICAL: History of present illness: Patient's a 63-year-old white female multiple chronic medical problems including chronic renal failure who receives hemodialysis was also insulin- dependent diabetic and had low blood sugar with associated seizure blood sugar was found to be in the 50s when paramedics arrived she was given 1 amp of D50 repeat blood sugar was 120 patient remains somnolent here she does all extremities she was seen several days prior with the petechial rash she has been without fever chills nausea vomiting or other complaints she did refuse admission the other day for a observation. Review of systems: As per history of present illness and below otherwise all systems reviewed and negative. Past medical history: As per history of present illness and as reviewed below otherwise noncontributory. Surgical history: As per history of present illness and as reviewed below otherwise noncontributory. Social history: No reported history of drug or alcohol abuse. Family history: As per history of present illness and as reviewed below otherwise noncontributory. Physical exam: HEENT: Atraumatic, normocephalic, pupils reactive, conjunctival pallor noted no scleral icterus, mucous membranes dry, throat clear, neck supple, nontender, trachea midline. Lungs: Clear to auscultation, breath sounds equal bilaterally, chest nontender. Dialysis catheter noted right chest Heart: S1S2, regular, negative for clicks, rubs, or JVD. Abdomen: Soft, nondistended, nontender. Negative for masses or hepatosplenomegaly. Negative for costovertebral tenderness. Pelvis: Stable nontender. Genitourinary: Deferred. Rectal: Deferred. Extremities: Atraumatic, negative for cords or calf pain. Neurovascular unremarkable. Neuro: Somnolent does move all extremities limited grossly nonfocal exam Skin: Patient has a petechial type rash noted somewhat diffusely slightly improved compared to several days prior Diagnostics: CT brain CBC CMP blood cultures 2 lactic acid ammonia level chest x-ray EKG Therapeutics: IV O2 monitor Zosyn 3.375 IV vancomycin 1 g IV Impression: #1 altered mental status #2 hypoglycemic episode with seizure #3 history of chronic renal failure #4 petechial rash Definitive disposition and diagnosis as appropriate pending reevaluation and review of above. Treatments SHAREPOINT MANAGER: Reports: IV/IO, Other (see below) Other Treatments SHAREPOINT MANAGER: about 200mls NS bolu, D50-50 1 amp - Related Data Allergies Allergy/AdvReac Type Severity Reaction Status Date / Time No Known Allergies Allergy Verified 11/25/18 23:47 Home Meds: Home Meds PARoxetine HCl [Paxil] 40 mg PO BEDTIME 05/20/14 [History] Simvastatin [Zocor] 80 mg PO BEDTIME 05/20/14 [History] Multivitamin [Multi-Vitamin Daily] 1 tab PO DAILY 08/02/14 [History] Aspirin 81 mg PO DAILY 10/09/17 [History] Iron Polysaccharides Complex [Ferrex 150] 150 mg PO DAILY 30 Days #30 cap [Rx] Insulin Glargine,Hum.Rec.Anlog [Basaglar Kwikpen U-100] 15 units SQ QAM [History] Gabapentin [Neurontin] 100 mg PO ASDIRECTED #30 capsule 09/22/18 [Rx] Insulin Aspart [NovoLOG] 10 units SUBCUT BID 11/26/18 [History] Past Medical History HEENT History: Reports: Cataract Cardiovascular History: Reports: Heart Failure, High Cholesterol, Hypertension Respiratory History: Reports: COPD Other Respiratory History: told she has "lung abnormalities", was supposed to have pulmunary fuction testing, but didn't make the appt. 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: Musculoskeletal History: Reports: Back Pain, Chronic Neurological History: Reports: None Psychiatric History: Reports: Anxiety, Depression, Mood Swings Endocrine/Metabolic History: Reports: Diabetes, Type II Hematologic History: Reports: Anemia, Blood Transfusion(s) Other Hematologic History: 2 blood transfusions in lifetime Immunologic History: Reports: None Oncologic (Cancer) History: Reports: None Dermatologic History: Reports: None - Infectious Disease History Infectious Disease History: Reports: Shingles - Past Surgical History Head Surgeries/Procedures: Reports: None HEENT Surgical History: Reports: Cataract Surgery Cardiovascular Surgical History: Reports: None Respiratory Surgical History: Reports: None GI Surgical History: Reports: None Endocrine Surgical History: Reports: None Musculoskeletal Surgical History: Reports: None Social & Family History - Family History Family Medical History: Noncontributory - Tobacco Use Smoking Status *Q: Current Every Day Smoker Years of Tobacco use: 30 Packs/Tins Daily: 0.5 - Caffeine Use Caffeine Use: Reports: Coffee - Recreational Drug Use Recreational Drug Use: No ED ROS GENERAL - Review of Systems Review Of Systems: ROS reveals no pertinent complaints other than HPI. ED EXAM GENERAL NO PERIP PULSE - Physical Exam Exam: See Below (See dictation) Course - Vital Signs Last Recorded V/S: Last Vital Signs Temp 32.2 C L 11/26/18 02:13 Pulse 57 L 11/26/18 02:39 Resp 11 L 11/26/18 02:39 BP 166/82 H 11/26/18 02:39 Pulse Ox 100 11/26/18 02:39 - Orders/Labs/Meds Orders: Active Orders 24 hr Category Date Time Status EKG Documentation Completion [RC] STAT Care 11/25/18 23:49 Active CULTURE BLOOD [BC] Stat Lab 11/26/18 01:12 Received CULTURE BLOOD [BC] Stat Lab 11/26/18 01:20 Received Blood Culture x2 Reflex Set [OM.PC] Stat Oth 11/26/18 00:55 Ordered Labs: Laboratory Tests 11/25/18 11/25/18 11/25/18 Range/Units 23:50 23:51 23:51 WBC 4.79 (4.0-11.0) K/uL RBC 2.87 L (4.30-5.90) M/uL Hgb 8.8 L (12.0-16.0) g/dL Hct 26.5 L (36.0-46.0) % MCV 92.3 (80.0-98.0) fL MCH 30.7 (27.0-32.0) pg MCHC 33.2 (31.0-37.0) g/dL RDW Std Deviation 45.3 (28.0-62.0) fl RDW Coeff of Saul 14 (11.0-15.0) % Plt Count 141 L (150-400) K/uL MPV 10.80 (7.40-12.00) fL Neut % (Auto) 86.9 H (48.0-80.0) % Lymph % (Auto) 7.9 L (16.0-40.0) % Labette % (Auto) 3.5 (0.0-15.0) % Eos % (Auto) 1.5 (0.0-7.0) % Baso % (Auto) 0.2 (0.0-1.5) % Neut # (Auto) 4.2 (1.4-5.7) K/uL Lymph # (Auto) 0.4 L (0.6-2.4) K/uL Labette # (Auto) 0.2 (0.0-0.8) K/uL Eos # (Auto) 0.1 (0.0-0.7) K/uL Baso # (Auto) 0.0 (0.0-0.1) K/uL Lactate (0.20-2.00) mmol/L Sodium 138 (136-145) mmol/L Potassium 3.0 L (3.5-5.1) mmol/L Chloride 99 (98-107) mmol/L Carbon Dioxide 28.9 (21.0-32.0) mmol/L BUN 45 H (7.0-18.0) mg/dL Creatinine 4.5 H (0.6-1.0) mg/dL Est Cr Clr Drug Dosing 11.66 mL/min Estimated GFR (MDRD) 9.9 ml/min Glucose 112 H (74-106) mg/dL Calcium 8.4 L (8.5-10.1) mg/dL Total Bilirubin 1.0 (0.2-1.0) mg/dL AST 45 H (15-37) IU/L ALT 27 (14-63) IU/L Alkaline Phosphatase 751 H (46-116) U/L Ammonia 14 L (19-54) ug/dL Total Protein 6.8 (6.4-8.2) g/dL Albumin 1.8 L (3.4-5.0) g/dL Globulin 5.0 H (2.6-4.0) g/dL Albumin/Globulin Ratio 0.4 L (0.9-1.6) 11/26/18 Range/Units 01:20 WBC (4.0-11.0) K/uL RBC (4.30-5.90) M/uL Hgb (12.0-16.0) g/dL Hct (36.0-46.0) % MCV (80.0-98.0) fL MCH (27.0-32.0) pg MCHC (31.0-37.0) g/dL RDW Std Deviation (28.0-62.0) fl RDW Coeff of Saul (11.0-15.0) % Plt Count (150-400) K/uL MPV (7.40-12.00) fL Neut % (Auto) (48.0-80.0) % Lymph % (Auto) (16.0-40.0) % Labette % (Auto) (0.0-15.0) % Eos % (Auto) (0.0-7.0) % Baso % (Auto) (0.0-1.5) % Neut # (Auto) (1.4-5.7) K/uL Lymph # (Auto) (0.6-2.4) K/uL Labette # (Auto) (0.0-0.8) K/uL Eos # (Auto) (0.0-0.7) K/uL Baso # (Auto) (0.0-0.1) K/uL Lactate 0.5 (0.20-2.00) mmol/L Sodium (136-145) mmol/L Potassium (3.5-5.1) mmol/L Chloride (98-107) mmol/L Carbon Dioxide (21.0-32.0) mmol/L BUN (7.0-18.0) mg/dL Creatinine (0.6-1.0) mg/dL Est Cr Clr Drug Dosing mL/min Estimated GFR (MDRD) ml/min Glucose (74-106) mg/dL Calcium (8.5-10.1) mg/dL Total Bilirubin (0.2-1.0) mg/dL AST (15-37) IU/L ALT (14-63) IU/L Alkaline Phosphatase (46-116) U/L Ammonia (19-54) ug/dL Total Protein (6.4-8.2) g/dL Albumin (3.4-5.0) g/dL Globulin (2.6-4.0) g/dL Albumin/Globulin Ratio (0.9-1.6) Meds: Medications Discontinued Medications Generic Name Dose Route Start Last Admin Trade Name Freq PRN Reason Stop Dose Admin Piperacillin Sod/Tazobactam 50 mls @ 100 mls/hr 11/26/18 00:56 11/26/18 01:31 Sod 3.375 gm/ Sodium Chloride IV 11/26/18 01:25 100 mls/hr ONETIME ONE Administration Vancomycin HCl 1 gm/ Sodium 250 mls @ 250 mls/hr 11/26/18 00:55 11/26/18 02: 14 Chloride IV 11/26/18 01:54 250 mls/hr ONETIME ONE Administration Departure - Departure Time of Disposition: 02:48 Disposition: DC/Tfer to Acute Hospital 02 Condition: Serious Clinical Impression: Altered mental status, Chronic renal failure, Hypoglycemia, Petechial rash - Discharge Information Referrals: PCP,None [Primary Care Provider] - Forms: ED Department Discharge - My Orders Last 24 Hours: My Active Orders 11/25/18 23:49 EKG Documentation Completion [RC] STAT 11/26/18 00:55 Blood Culture x2 Reflex Set [OM.PC] Stat 11/26/18 01:12 CULTURE BLOOD [BC] Stat 11/26/18 01:20 CULTURE BLOOD [BC] Stat - Assessment/Plan Last 24 Hours: My Active Orders 11/25/18 23:49 EKG Documentation Completion [RC] STAT 11/26/18 00:55 Blood Culture x2 Reflex Set [OM.PC] Stat 11/26/18 01:12 CULTURE BLOOD [BC] Stat 11/26/18 01:20 CULTURE BLOOD [BC] Stat
[2018-11-26 02:40] VITALS: BP 166/82
[2018-11-26] MEDS ORDERED: 50% Dextrose in Water 50 ML Syringe IVPUSH ONE (03:26)
== END 2018-11-26 03:57 ==
LOC: MW.ED 23:42
DX: E11.649 Type 2 diabetes mellitus with hypoglycemia without coma (principal); R56.9 Unspecified convulsions; N18.9 Chronic kidney disease, unspecified; R23.3 Spontaneous ecchymoses; I11.0 Hypertensive heart disease with heart failure; I50.9 Heart failure, unspecified; J44.9 Chronic obstructive pulmonary disease, unspecified; E11.22 Type 2 diabetes mellitus with diabetic chronic kidney disease; F17.210 Nicotine dependence, cigarettes, uncomplicated; Z79.899 Other long term (current) drug therapy
CPT/HCPCS: 36415; 70450; 71045; 80053; 82140; 82962; 83605; 85025; 87040; 93005; 96365; 96367; 99285; J2543; J3370; J7050

== ENCOUNTER 2019-04-13 07:37 | Emergency (ER) | payer OTHER ==
[2019-04-13] MEDS ORDERED: Sodium Chloride 0.9% 2.5 ML Syringe FLUSH PRN (07:40)
[2019-04-13] MEDS ORDERED: Sodium Chloride 0.9% 10 ML Syringe FLUSH PRN (07:40)
--- NOTE | 2019-04-13 08:03 | EDM.PDOC ---
ED HPI GENERAL MEDICAL PROBLEM - General Chief Complaint: Trauma Stated Complaint: LT LEG PAIN Time Seen by Provider: 04/13/19 07:46 - History of Present Illness INITIAL COMMENTS - FREE TEXT/NARRATIVE: HISTORY AND PHYSICAL: History of present illness: Patient is 63-year-old white female with history chronic renal failure who is due for dialysis today who presents status post fall patient states she routinely has some generalized weakness and if she's not been very active her legs are somewhat weakened with onset of standing and walking which has prompted falls in the past she is on aspirin she denies other anticoagulants she denies any head or neck pain or trauma denies chest pain shortness of breath or other concern patient's family does report a fall last week where she did hit her head and sustained a small hematoma to the left occipital scalp Review of systems: As per history of present illness and below otherwise all systems reviewed and negative. Past medical history: As per history of present illness and as reviewed below otherwise noncontributory. Surgical history: As per history of present illness and as reviewed below otherwise noncontributory. Social history: No reported history of drug or alcohol abuse. Family history: As per history of present illness and as reviewed below otherwise noncontributory. Physical exam: HEENT: Patient has a small hematoma in the left occipital region, normocephalic , pupils reactive, conjunctival pallor noted no scleral icterus, mucous membranes dry throat clear, neck supple, nontender, trachea midline. Lungs: Clear to auscultation, breath sounds equal bilaterally, chest nontender. Heart: S1S2, regular, negative for clicks, rubs, or JVD. Abdomen: Soft, nondistended, nontender. Negative for masses or hepatosplenomegaly. Negative for costovertebral tenderness. Pelvis: Stable nontender. Genitourinary: Deferred. Rectal: Deferred. Extremities: Atraumatic, negative for cords or calf pain. Neurovascular unremarkable. No shortening or rotation some mild tenderness to palpation of her left hip without localization crepitation or point tenderness Neuro: Awake, alert, oriented. Follows command moves all extremities limited but grossly nonfocal exam. Diagnostics: CBC CMP troponin PT/INR chest x-ray EKG CT brain x-ray left hip with pelvis and femur Therapeutics: Saline lock armed guard Impression: #1 observation status post fall #2 left hip injury #3 history of chronic renal failure #4 hypokalemia Definitive disposition and diagnosis as appropriate pending reevaluation and review of above. left hip Pain Score (Numeric/FACES): 4 - Related Data Allergies Allergy/AdvReac Type Severity Reaction Status Date / Time No Known Allergies Allergy Verified 11/25/18 23:47 Home Meds: Home Meds PARoxetine HCl [Paxil] 40 mg PO BEDTIME 05/20/14 [History] Simvastatin [Zocor] 80 mg PO BEDTIME 05/20/14 [History] Multivitamin [Multi-Vitamin Daily] 1 tab PO DAILY 08/02/14 [History] Aspirin 81 mg PO DAILY 10/09/17 [History] Iron Polysaccharides Complex [Ferrex 150] 150 mg PO DAILY 30 Days #30 cap [Rx] Insulin Glargine,Hum.Rec.Anlog [Basaglar Kwikpen U-100] 15 units SQ QAM [History] Gabapentin [Neurontin] 100 mg PO ASDIRECTED #30 capsule 09/22/18 [Rx] Insulin Aspart [NovoLOG] 10 units SUBCUT BID 11/26/18 [History] Albuterol Sulfate [Proair Hfa] 1 inh INH QID 04/13/19 [History] Calcium Acetate 667 mg PO DAILY 04/13/19 [History] Furosemide 20 mg PO DAILY 04/13/19 [History] Sevelamer Carbonate 1,600 mg PO TID 04/13/19 [History] amLODIPine [Norvasc] 5 mg PO DAILY 04/13/19 [History] Past Medical History HEENT History: Reports: Cataract Cardiovascular History: Reports: Heart Failure, High Cholesterol, Hypertension Respiratory History: Reports: COPD Other Respiratory History: told she has "lung abnormalities", was supposed to have pulmunary fuction testing, but didn't make the appt. 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 History: Reports: None [employer] TRA[employer]ER History: Reports: Musculoskeletal History: Reports: Back Pain, Chronic Neurological History: Reports: None Psychiatric History: Reports: Anxiety, Depression, Mood Swings Endocrine/Metabolic History: Reports: Diabetes, Type II Hematologic History: Reports: Anemia, Blood Transfusion(s) Other Hematologic History: 2 blood transfusions in lifetime Immunologic History: Reports: None Oncologic (Cancer) History: Reports: None Dermatologic History: Reports: None - Infectious Disease History Infectious Disease History: Reports: Shingles - Past Surgical History Head Surgeries/Procedures: Reports: None HEENT Surgical History: Reports: Cataract Surgery Cardiovascular Surgical History: Reports: None Respiratory Surgical History: Reports: None GI Surgical History: Reports: None Endocrine Surgical History: Reports: None Musculoskeletal Surgical History: Reports: None Social & Family History - Family History Family Medical History: Noncontributory - Caffeine Use Caffeine Use: Reports: Coffee Review of Systems - Review of Systems Review Of Systems: ROS reveals no pertinent complaints other than HPI. ED EXAM, GENERAL - Physical Exam Exam: See Below (dictation) Course - Vital Signs Last Recorded V/S: Last Vital Signs Temp 36.0 C 04/13/19 07:37 Pulse 74 04/13/19 07:37 Resp 20 04/13/19 07:37 BP 139/72 04/13/19 07:37 Pulse Ox 91 L 04/13/19 07:37 - Orders/Labs/Meds Orders: Active Orders 24 hr Category Date Time Status Cardiac Monitoring [RC] . DIRECTED Care 04/13/19 07:40 Active EKG 12 Lead [EKG Documentation Completion] [RC] STAT Care 04/13/19 08:02 Active COMPREHENSIVE METABOLIC PN,CMP [CHEM] Stat Lab 04/13/19 08:35 Results TROPONIN I [CHEM] Stat Lab 04/13/19 08:35 Results Sodium Chloride 0.9% [Saline Flush] Med 04/13/19 07:40 Active 10 ml FLUSH ASDIRECTED PRN Sodium Chloride 0.9% [Saline Flush] Med 04/13/19 07:40 Active 2.5 ml FLUSH ASDIRECTED PRN Saline Lock Insert [OM.PC] Stat Oth 04/13/19 07:40 Ordered Medication Orders Sodium Chloride (Saline Flush) 10 ml FLUSH ASDIRECTED PRN PRN Reason: Keep Vein Open Sodium Chloride (Saline Flush) 2.5 ml FLUSH ASDIRECTED PRN PRN Reason: Keep Vein Open Labs: Laboratory Tests 04/13/19 04/13/19 04/13/19 Range/Units 08:35 08:35 08:35 WBC 6.44 (4.0-11.0) K/uL RBC 3.46 L (4.30-5.90) M/uL Hgb 10.8 L (12.0-16.0) g/dL Hct 33.4 L (36.0-46.0) % MCV 96.5 (80.0-98.0) fL MCH 31.2 (27.0-32.0) pg MCHC 32.3 (31.0-37.0) g/dL RDW Std Deviation 56.8 (28.0-62.0) fl RDW Coeff of Saul 17 H (11.0-15.0) % Plt Count 121 L (150-400) K/uL MPV 11.50 (7.40-12.00) fL Neut % (Auto) 86.0 H (48.0-80.0) % Lymph % (Auto) 7.0 L (16.0-40.0) % [place] % (Auto) 4.0 (0.0-15.0) % Eos % (Auto) 2.5 (0.0-7.0) % Baso % (Auto) 0.5 (0.0-1.5) % Neut # (Auto) 5.5 (1.4-5.7) K/uL Lymph # (Auto) 0.5 L (0.6-2.4) K/uL [place] # (Auto) 0.3 (0.0-0.8) K/uL Eos # (Auto) 0.2 (0.0-0.7) K/uL Baso # (Auto) 0.0 (0.0-0.1) K/uL Nucleated RBC % 0.0 /100WBC Nucleated RBCs # 0 K/uL INR 1.47 Sodium 135 L (136-145) mmol/L Potassium 2.8 L (3.5-5.1) mmol/L Chloride 97 L (98-107) mmol/L Carbon Dioxide 23.6 (21.0-32.0) mmol/L BUN 62 H (7.0-18.0) mg/dL Creatinine 4.9 H (0.6-1.0) mg/dL Est Cr Clr Drug Dosing TNP Estimated GFR (MDRD) 9.0 ml/min Glucose 251 H (74-106) mg/dL POC Glucose (60-110) mg/dL Calcium 8.4 L (8.5-10.1) mg/dL Total Bilirubin 1.7 H (0.2-1.0) mg/dL AST 49 H (15-37) IU/L ALT 41 (14-63) IU/L Troponin I 0.274 H* (0.000-0.056) ng/mL Total Protein 7.6 (6.4-8.2) g/dL Albumin 2.2 L (3.4-5.0) g/dL Globulin 5.4 H (2.6-4.0) g/dL Albumin/Globulin Ratio 0.4 L (0.9-1.6) Urine Color Urine Appearance Urine pH (5.0-8.0) Ur Specific [place] (1.001-1.035) Urine Protein (NEGATIVE) mg/dL Urine Glucose (UA) (NEGATIVE) mg/dL Urine Ketones (NEGATIVE) mg/dL Urine Occult Blood (NEGATIVE) Urine Nitrite (NEGATIVE) Urine Bilirubin (NEGATIVE) Urine Ictotest Urine Urobilinogen (<2.0) EU/dL Ur Leukocyte Esterase (NEGATIVE) Urine RBC (0-2/HPF) Urine WBC (0-5/HPF) Ur Epithelial Cells (NONE-FEW) Amorphous Sediment (NEGATIVE) Urine Bacteria (NEGATIVE) Urine Mucus (NONE-MOD) 04/13/19 04/13/19 Range/Units 08:58 09:25 WBC (4.0-11.0) K/uL RBC (4.30-5.90) M/uL Hgb (12.0-16.0) g/dL Hct (36.0-46.0) % MCV (80.0-98.0) fL MCH (27.0-32.0) pg MCHC (31.0-37.0) g/dL RDW Std Deviation (28.0-62.0) fl RDW Coeff of Saul (11.0-15.0) % Plt Count (150-400) K/uL MPV (7.40-12.00) fL Neut % (Auto) (48.0-80.0) % Lymph % (Auto) (16.0-40.0) % [place] % (Auto) (0.0-15.0) % Eos % (Auto) (0.0-7.0) % Baso % (Auto) (0.0-1.5) % Neut # (Auto) (1.4-5.7) K/uL Lymph # (Auto) (0.6-2.4) K/uL [place] # (Auto) (0.0-0.8) K/uL Eos # (Auto) (0.0-0.7) K/uL Baso # (Auto) (0.0-0.1) K/uL Nucleated RBC % /100WBC Nucleated RBCs # K/uL INR Sodium (136-145) mmol/L Potassium (3.5-5.1) mmol/L Chloride (98-107) mmol/L Carbon Dioxide (21.0-32.0) mmol/L BUN (7.0-18.0) mg/dL Creatinine (0.6-1.0) mg/dL Est Cr Clr Drug Dosing Estimated GFR (MDRD) ml/min Glucose (74-106) mg/dL POC Glucose 209 H (60-110) mg/dL Calcium (8.5-10.1) mg/dL Total Bilirubin (0.2-1.0) mg/dL AST (15-37) IU/L ALT (14-63) IU/L Troponin I (0.000-0.056) ng/mL Total Protein (6.4-8.2) g/dL Albumin (3.4-5.0) g/dL Globulin (2.6-4.0) g/dL Albumin/Globulin Ratio (0.9-1.6) Urine Color DARK YELLOW Urine Appearance CLEAR Urine pH 6.5 (5.0-8.0) Ur Specific [place] 1.020 (1.001-1.035) Urine Protein >=300 H (NEGATIVE) mg/dL Urine Glucose (UA) >=1000 (NEGATIVE) mg/dL Urine Ketones NEGATIVE (NEGATIVE) mg/dL Urine Occult Blood MODERATE H (NEGATIVE) Urine Nitrite NEGATIVE (NEGATIVE) Urine Bilirubin MODERATE H (NEGATIVE) Urine Ictotest POSITIVE Urine Urobilinogen 0.2 (<2.0) EU/dL Ur Leukocyte Esterase NEGATIVE (NEGATIVE) Urine RBC 10-15 (0-2/HPF) Urine WBC 2-4 (0-5/HPF) Ur Epithelial Cells FEW (NONE-FEW) Amorphous Sediment MODERATE (NEGATIVE) Urine Bacteria FEW (NEGATIVE) Urine Mucus LIGHT (NONE-MOD) Meds: Medications Generic Name Dose Route Start Last Admin Trade Name Freq PRN Reason Stop Dose Admin Sodium Chloride 10 ml 04/13/19 07:40 Saline Flush FLUSH ASDIRECTED PRN Keep Vein Open Sodium Chloride 2.5 ml 04/13/19 07:40 Saline Flush FLUSH ASDIRECTED PRN Keep Vein Open Departure - Departure Time of Disposition: 10:20 Disposition: Home, Self-Care 01 Condition: Good Clinical Impression: Fall, Hip injury, Chronic renal failure, Hypokalemia - Discharge Information Referrals: PCP,None [Primary Care Provider] - Forms: ED Department Discharge Additional Instructions: The following information is given to patients seen in the emergency department who are being discharged to home. This information is to outline your options for follow-up care. We provide all patients seen in our emergency department with a follow-up referral. The need for follow-up, as well as the timing and circumstances, are variable depending upon the specifics of your emergency department visit. If you don't have a primary care physician on staff, we will provide you with a referral. We always advise you to contact your personal physician following an emergency department visit to inform them of the circumstance of the visit and for follow-up with them and/or the need for any referrals to a consulting specialist. The emergency department will also refer you to a specialist when appropriate. This referral assures that you have the opportunity for followup care with a specialist. All of these measure are taken in an effort to provide you with optimal care, which includes your followup. Under all circumstances we always encourage you to contact your private physician who remains a resource for coordinating your care. When calling for followup care, please make the office aware that this follow-up is from your recent emergency room visit. If for any reason you are refused follow-up, please contact the [facility] emergency department at and asked to speak to the emergency department charge nurse. Follow-up dialysis today as scheduled return as needed as discussed follow-up private medical doctor as needed as discussed - My Orders Last 24 Hours: My Active Orders 04/13/19 07:40 Cardiac Monitoring [RC] . DIRECTED Sodium Chloride 0.9% [Saline Flush] 10 ml FLUSH ASDIRECTED PRN Sodium Chloride 0.9% [Saline Flush] 2.5 ml FLUSH ASDIRECTED PRN Saline Lock Insert [OM.PC] Stat 04/13/19 08:02 EKG 12 Lead [EKG Documentation Completion] [RC] STAT 04/13/19 08:35 COMPREHENSIVE METABOLIC PN,CMP [CHEM] Stat TROPONIN I [CHEM] Stat - Assessment/Plan Last 24 Hours: My Active Orders 04/13/19 07:40 Cardiac Monitoring [RC] . DIRECTED Sodium Chloride 0.9% [Saline Flush] 10 ml FLUSH ASDIRECTED PRN Sodium Chloride 0.9% [Saline Flush] 2.5 ml FLUSH ASDIRECTED PRN Saline Lock Insert [OM.PC] Stat 04/13/19 08:02 EKG 12 Lead [EKG Documentation Completion] [RC] STAT 04/13/19 08:35 COMPREHENSIVE METABOLIC PN,CMP [CHEM] Stat TROPONIN I [CHEM] Stat
--- NOTE | 2019-04-13 08:12 | CT ---
INDICATION: Trauma. COMPARISON: CT head without intravenous contrast November 26, 2018. TECHNIQUE: CT head without intravenous contrast; coronal and sagittal reformats. FINDINGS: Evidence of hematoma in the scalp overlying the left occipital area. No intracranial hemorrhage. No mass lesions. No evidence of shift of the midline structures. The calvarium is unremarkable. No interval change. IMPRESSION: 1. Hematoma in the scalp overlying the left occipital area. 2. No intracranial hemorrhage. 3. No mass lesions or shift of the midline structures. Please note that all CT scans at this facility use dose modulation, iterative reconstruction, and/or weight-based dosing when appropriate to reduce radiation dose to as low as reasonably achievable. Dictated by Rei Castillo MD @ Apr 13 2019 8:08AM Signed by Dr. Rei Castillo @ Apr 13 2019 8:11AM
[2019-04-13 08:49] VITALS: BP 139/72
--- NOTE | 2019-04-13 08:51 | CR ---
INDICATION: Trauma. COMPARISON: Chest radiograph 11/26/2018. TECHNIQUE: Portable AP chest. FINDINGS: Stable cardiomegaly. Tunnel dialysis catheter extending from the right jugular vein into the right atrium. Prominent interstitial lung markings; rule out fluid overload; stable. No acute pathology. Impression : 1. Stable cardiomegaly. 2. Possible fluid overload without any interval change. 3. Dialysis catheter in place. Dictated by Rei Castillo MD @ Apr 13 2019 8:48AM Signed by Dr. Rei Castillo @ Apr 13 2019 8:50AM
--- NOTE | 2019-04-13 08:53 | CR ---
INDICATION: Trauma. TECHNIQUE: Two-view study left femur. FINDINGS: No evidence of fracture or dislocation. No bone or soft tissue abnormalities. Vascular calcifications throughout. IMPRESSION: Negative radiographic examination of the left femur. Dictated by Rei Castillo MD @ Apr 13 2019 8:50AM Signed by Dr. Rei Castillo @ Apr 13 2019 8:52AM
--- NOTE | 2019-04-13 08:53 | CR ---
INDICATION: Trauma; pain left hip. TECHNIQUE: Two-view study pelvis and left hip. FINDINGS: No evidence of fracture or dislocation. No bone or soft tissue abnormalities. IMPRESSION: Negative radiographic examination of the pelvis and left hip. Dictated by Rei Castillo MD @ Apr 13 2019 8:52AM Signed by Dr. Rei Castillo @ Apr 13 2019 8:52AM
[2019-04-13 09:22] LABS: BLOOD UREA NITROGEN,BUN 62 mg/dL (7.0-18.0); CARBON DIOXIDE,CO2 23.6 mmol/L (21.0-32.0); CHLORIDE,CL 97 mmol/L (98-107); GLUCOSE RANDOM 251 mg/dL (74-106); POTASSIUM,K 2.8 mmol/L (3.5-5.1); SODIUM,NA 135 mmol/L (136-145)
== END 2019-04-13 10:44 | disposition home or self-care (01) ==
LOC: MW.ED 07:37
DX: S79.912A Unspecified injury of left hip, initial encounter (principal); E87.6 Hypokalemia; I13.0 Hypertensive heart and chronic kidney disease with heart failure and stage 1 through stage 4 chronic kidney disease, or unspecified chronic kidney disease; E11.22 Type 2 diabetes mellitus with diabetic chronic kidney disease; N18.9 Chronic kidney disease, unspecified; I50.9 Heart failure, unspecified; D63.1 Anemia in chronic kidney disease; E78.00 Pure hypercholesterolemia, unspecified; J44.9 Chronic obstructive pulmonary disease, unspecified; F41.9 Anxiety disorder, unspecified; F32.9 Major depressive disorder, single episode, unspecified; Z79.4 Long term (current) use of insulin; Z79.82 Long term (current) use of aspirin; Z79.899 Other long term (current) drug therapy; W19.XXXA Unspecified fall, initial encounter
CPT/HCPCS: 36415; 70450; 70450-26; 71045; 71045-26; 73502-26-LT; 73502-LT; 73552-26-LT; 73552-LT; 80053; 81001; 82962; 84484; 85025; 85610; 93005; 99283; 99285-25

== ENCOUNTER 2019-04-13 15:47 | Emergency (ER) | payer OTHER | END 2019-04-13 16:31 | disposition left against medical advice (07) | LOC: MW.ED 15:47 | DX: Z53.21 Procedure and treatment not carried out due to patient leaving prior to being seen by health care provider (principal) ==

== ENCOUNTER 2019-06-20 17:45 | Emergency (ER) | payer OTHER ==
[2019-06-20 18:17] VITALS: BP 126/67; PULSE 78
--- NOTE | 2019-06-20 18:17 | EDM.PDOC ---
ED HPI GENERAL MEDICAL PROBLEM - General Chief Complaint: Neurological Problem Stated Complaint: DIABETIC Time Seen by Provider: 06/20/19 18:05 Source of Information: Reports: EMS History Limitations: Reports: No Limitations - History of Present Illness INITIAL COMMENTS - FREE TEXT/NARRATIVE: HISTORY AND PHYSICAL: History of present illness: She is a 63-year-old female who is brought in by EMS for concern of altered mental status and hypoglycemia. Patient is on dialysis as well as has a history of diabetes. Patient has been called the ambulance due to concern of blood sugars and altered mental status. Upon arrival, patient unresponsive but taking breathing on own with pulse. O2 on 10L non rebreather 80%, HR80, BP 142/80. states she has had 15U on insulin today at 6pm. Patient did have dialysis yesterday. Review of systems: As per history of present illness and below otherwise all systems reviewed and negative. Past medical history: As per history of present illness and as reviewed below otherwise noncontributory. Surgical history: As per history of present illness and as reviewed below otherwise noncontributory. Social history: See social history for further information Family history: As per history of present illness and as reviewed below otherwise noncontributory. Physical exam: General: Patient is unresponsive. Patient laying on exam table. HEENT: Atraumatic, normocephalic, pupils equal and reactive bilaterally, negative for conjunctival pallor or scleral icterus, mucous membranes dry, throat clear, neck supple, trachea midline. Lungs: Diminished lung sounds of the left lung olivares with crackles to auscultation, breath sounds equal bilaterally. Heart: S1S2, regular rate and rhythm without overt murmur Abdomen: Soft, nondistended. Pelvis: Stable nontender. Genitourinary: Deferred. Rectal: Deferred. Skin: Bandage wrapped around right foot. Otherwise, warm, dry, intact. Extremities: Atraumatic, negative for cords or calf pain. Neurovascular unremarkable. Neuro: Unresponsive. Cranial nerves II through XII unremarkable. Cerebellum unremarkable. Motor and sensory unremarkable throughout. Exam nonfocal. Notes: Dr. Vargas directly involved in patient care. Patient remained unconscious after glucose given. See intubation procedure below. O2 after intubation 97%. BP 143/83, HR 78 Dr. Roland, [facility], consulted on patient and accepting of transfer. Flight arranged. Diagnostics: CBC, CMP, UA, EKG, chest x-ray, troponin, bedside glucose Therapeutics: IV O2, monitor, 2 amp D50, calcium chloride, [place], Etomidate, Propofol Impression: Altered mental status Hypoglycemia Elevated troponin Chronic kidney disease Plan: 1. Transfer to [facility] to Dr. Roland via flight. Definitive disposition and diagnosis as appropriate pending reevaluation and review of above. - Related Data Allergies Allergy/AdvReac Type Severity Reaction Status Date / Time No Known Allergies Allergy Verified 06/20/19 18:15 Home Meds: Home Meds PARoxetine HCl [Paxil] 40 mg PO BEDTIME 05/20/14 [History] Simvastatin [Zocor] 80 mg PO BEDTIME 05/20/14 [History] Multivitamin [Multi-Vitamin Daily] 1 tab PO DAILY 08/02/14 [History] Aspirin 81 mg PO DAILY 10/09/17 [History] Iron Polysaccharides Complex [Ferrex 150] 150 mg PO DAILY 30 Days #30 cap [Rx] Insulin Glargine,Hum.Rec.Anlog [Basaglar Kwikpen U-100] 15 units SQ QAM [History] Gabapentin [Neurontin] 100 mg PO ASDIRECTED #30 capsule 09/22/18 [Rx] Insulin Aspart [NovoLOG] 10 units SUBCUT BID 11/26/18 [History] Albuterol Sulfate [Proair Hfa] 1 inh INH QID 04/13/19 [History] Calcium Acetate 667 mg PO DAILY 04/13/19 [History] Furosemide 20 mg PO DAILY 04/13/19 [History] Sevelamer Carbonate 1,600 mg PO TID 04/13/19 [History] amLODIPine [Norvasc] 5 mg PO DAILY 04/13/19 [History] Past Medical History HEENT History: Reports: Cataract Cardiovascular History: Reports: Heart Failure, High Cholesterol, Hypertension Respiratory History: Reports: COPD Other Respiratory History: told she has "lung abnormalities", was supposed to have pulmunary fuction testing, but didn't make the appt. 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: Musculoskeletal History: Reports: Back Pain, Chronic Neurological History: Reports: None Psychiatric History: Reports: Anxiety, Depression, Mood Swings Endocrine/Metabolic History: Reports: Diabetes, Type II Hematologic History: Reports: Anemia, Blood Transfusion(s) Other Hematologic History: 2 blood transfusions in lifetime Immunologic History: Reports: None Oncologic (Cancer) History: Reports: None Dermatologic History: Reports: None - Infectious Disease History Infectious Disease History: Reports: Shingles - Past Surgical History Head Surgeries/Procedures: Reports: None HEENT Surgical History: Reports: Cataract Surgery Cardiovascular Surgical History: Reports: None Respiratory Surgical History: Reports: None GI Surgical History: Reports: None Endocrine Surgical History: Reports: None Musculoskeletal Surgical History: Reports: None Social & Family History - Family History Family Medical History: Noncontributory - Caffeine Use Caffeine Use: Reports: Coffee ED ROS GENERAL - Review of Systems Review Of Systems: ROS reveals no pertinent complaints other than HPI. ED EXAM, GENERAL - Physical Exam Exam: See Below (See dictation) ED GENERAL MEDICAL PROCEDURES - Endotracheal Intubation Time of Intubation: 18:15 ET Intubation Indication: Airway Protection Preparation: Suction Pre-Oxygenation: Assisted with BVM Anesthesia Meds: Etomidate, Rocuronium Placement: Orotracheal, Cuffed Cords Visualized: Yes ETT Size In mm: 7 Number of Attempts: 1 Confirmed By: CO2 Indicator, Bilateral Breath Sounds, Chest Xray Tube Secured By: By Provider Course - Vital Signs Last Recorded V/S: Last Vital Signs Temp 95.4 F 06/20/19 17:45 Pulse 78 06/20/19 17:45 Resp 14 06/20/19 17:45 BP 126/67 06/20/19 17:45 Pulse Ox 94 L 06/20/19 17:45 - Orders/Labs/Meds Orders: Active Orders 24 hr Category Date Time Status EKG Documentation Completion [RC] STAT Care 06/20/19 18:05 Active Glucose [Blood Glucose Check, Bedside] [RC] ONETIME Care 06/20/19 18:06 Active ABG [BLOOD GAS ARTERIAL] [BG] Stat Lab 06/20/19 18:07 Ordered Labs: Laboratory Tests 06/20/19 06/20/19 06/20/19 Range/Units 17:47 17:47 17:47 WBC 5.78 (4.0-11.0) K/uL RBC 3.56 L (4.30-5.90) M/uL Hgb 11.5 L (12.0-16.0) g/dL Hct 35.8 L (36.0-46.0) % MCV 100.6 H (80.0-98.0) fL MCH 32.3 H (27.0-32.0) pg MCHC 32.1 (31.0-37.0) g/dL RDW Std Deviation 60.6 (28.0-62.0) fl RDW Coeff of Saul 16 H (11.0-15.0) % Plt Count 135 L (150-400) K/uL MPV 12.00 (7.40-12.00) fL Neut % (Auto) 78.7 (48.0-80.0) % Lymph % (Auto) 10.9 L (16.0-40.0) % Bulloch % (Auto) 9.7 (0.0-15.0) % Eos % (Auto) 0.5 (0.0-7.0) % Baso % (Auto) 0.2 (0.0-1.5) % Neut # (Auto) 4.6 (1.4-5.7) K/uL Lymph # (Auto) 0.6 (0.6-2.4) K/uL Bulloch # (Auto) 0.6 (0.0-0.8) K/uL Eos # (Auto) 0.0 (0.0-0.7) K/uL Baso # (Auto) 0.0 (0.0-0.1) K/uL Nucleated RBC % 0.0 /100WBC Nucleated RBCs # 0 K/uL INR 1.38 Sodium 136 (136-145) mmol/L Potassium 3.2 L (3.5-5.1) mmol/L Chloride 99 (98-107) mmol/L Carbon Dioxide 29.6 (21.0-32.0) mmol/L BUN 25 H (7.0-18.0) mg/dL Creatinine 3.1 H (0.6-1.0) mg/dL Est Cr Clr Drug Dosing TNP Estimated GFR (MDRD) 15.2 ml/min Glucose 160 H (74-106) mg/dL POC Glucose (60-110) mg/dL Calcium 9.4 (8.5-10.1) mg/dL Total Bilirubin 1.0 (0.2-1.0) mg/dL AST 37 (15-37) IU/L ALT 27 (14-63) IU/L Alkaline Phosphatase 832 H (46-116) U/L Troponin I 0.168 H* (0.000-0.056) ng/mL Total Protein 8.4 H (6.4-8.2) g/dL Albumin 2.1 L (3.4-5.0) g/dL Globulin 6.3 H (2.6-4.0) g/dL Albumin/Globulin Ratio 0.3 L (0.9-1.6) Urine Color Urine Appearance Urine pH (5.0-8.0) Ur Specific [place] (1.001-1.035) Urine Protein (NEGATIVE) mg/dL Urine Glucose (UA) (NEGATIVE) mg/dL Urine Ketones (NEGATIVE) mg/dL Urine Occult Blood (NEGATIVE) Urine Nitrite (NEGATIVE) Urine Bilirubin (NEGATIVE) Urine Urobilinogen (<2.0) EU/dL Ur Leukocyte Esterase (NEGATIVE) Urine RBC (0-2/HPF) Urine WBC (0-5/HPF) Ur Epithelial Cells (NONE-FEW) Amorphous Sediment (NEGATIVE) Urine Bacteria (NEGATIVE) 06/20/19 06/20/19 Range/Units 17:59 18:21 WBC (4.0-11.0) K/uL RBC (4.30-5.90) M/uL Hgb (12.0-16.0) g/dL Hct (36.0-46.0) % MCV (80.0-98.0) fL MCH (27.0-32.0) pg MCHC (31.0-37.0) g/dL RDW Std Deviation (28.0-62.0) fl RDW Coeff of Saul (11.0-15.0) % Plt Count (150-400) K/uL MPV (7.40-12.00) fL Neut % (Auto) (48.0-80.0) % Lymph % (Auto) (16.0-40.0) % Bulloch % (Auto) (0.0-15.0) % Eos % (Auto) (0.0-7.0) % Baso % (Auto) (0.0-1.5) % Neut # (Auto) (1.4-5.7) K/uL Lymph # (Auto) (0.6-2.4) K/uL Bulloch # (Auto) (0.0-0.8) K/uL Eos # (Auto) (0.0-0.7) K/uL Baso # (Auto) (0.0-0.1) K/uL Nucleated RBC % /100WBC Nucleated RBCs # K/uL INR Sodium (136-145) mmol/L Potassium (3.5-5.1) mmol/L Chloride (98-107) mmol/L Carbon Dioxide (21.0-32.0) mmol/L BUN (7.0-18.0) mg/dL Creatinine (0.6-1.0) mg/dL Est Cr Clr Drug Dosing Estimated GFR (MDRD) ml/min Glucose (74-106) mg/dL POC Glucose 192 H (60-110) mg/dL Calcium (8.5-10.1) mg/dL Total Bilirubin (0.2-1.0) mg/dL AST (15-37) IU/L ALT (14-63) IU/L Alkaline Phosphatase (46-116) U/L Troponin I (0.000-0.056) ng/mL Total Protein (6.4-8.2) g/dL Albumin (3.4-5.0) g/dL Globulin (2.6-4.0) g/dL Albumin/Globulin Ratio (0.9-1.6) Urine Color DARK YELLOW Urine Appearance SLT CLOUDY Urine pH 6.5 (5.0-8.0) Ur Specific [place] 1.015 (1.001-1.035) Urine Protein >=300 H (NEGATIVE) mg/dL Urine Glucose (UA) 100 H (NEGATIVE) mg/dL Urine Ketones NEGATIVE (NEGATIVE) mg/dL Urine Occult Blood LARGE H (NEGATIVE) Urine Nitrite NEGATIVE (NEGATIVE) Urine Bilirubin MODERATE H (NEGATIVE) Urine Urobilinogen 0.2 (<2.0) EU/dL Ur Leukocyte Esterase NEGATIVE (NEGATIVE) Urine RBC 55-60 (0-2/HPF) Urine WBC 0-2 (0-5/HPF) Ur Epithelial Cells MODERATE (NONE-FEW) Amorphous Sediment MODERATE (NEGATIVE) Urine Bacteria FEW (NEGATIVE) Departure - Departure Time of Disposition: 18:37 Disposition: DC/Tfer to [facility] 02 Clinical Impression: Hypoglycemia, Elevated troponin Altered mental status Qualifiers: Altered mental status type: coma Coma depth: unspecified coma depth Qualified Code(s): R40.20 - Unspecified coma Chronic kidney disease Qualifiers: Chronic kidney disease stage: on chronic dialysis Qualified Code(s): N18.6 - End stage renal disease; Z99.2 - Dependence on renal dialysis - Discharge Information Referrals: Sal Jorgensen MD [Primary Care Provider] - Forms: ED Department Discharge - My Orders Last 24 Hours: My Active Orders 06/20/19 18:05 EKG Documentation Completion [RC] STAT 06/20/19 18:06 Glucose [Blood Glucose Check, Bedside] [RC] ONETIME 06/20/19 18:07 ABG [BLOOD GAS ARTERIAL] [BG] Stat - Assessment/Plan Last 24 Hours: My Active Orders 06/20/19 18:05 EKG Documentation Completion [RC] STAT 06/20/19 18:06 Glucose [Blood Glucose Check, Bedside] [RC] ONETIME 06/20/19 18:07 ABG [BLOOD GAS ARTERIAL] [BG] Stat
--- NOTE | 2019-06-20 18:22 | CR ---
Indication: None contrast. Post intubation. Technique: A single AP portable view of the chest was obtained. Comparison: April 13, 2019. Findings: A right-sided infusion catheter is identified. Interval bilayer PAD is identified overlying the right chest. An ET tube is identified with the tip 3 cm superior to the level of the estefani. Increased interstitial opacities are identified throughout the left lung with increased elevation of the left hemidiaphragm. Impression: Intubation. Dictated by Nuris Emerson MD @ Jun 20 2019 6:20PM Signed by Dr. Nuris Emerson @ Jun 20 2019 6:21PM
[2019-06-20 18:55] LABS: BLOOD UREA NITROGEN,BUN 25 mg/dL (7.0-18.0); CARBON DIOXIDE,CO2 29.6 mmol/L (21.0-32.0); CHLORIDE,CL 99 mmol/L (98-107); GLUCOSE RANDOM 160 mg/dL (74-106); POTASSIUM,K 3.2 mmol/L (3.5-5.1); SODIUM,NA 136 mmol/L (136-145)
[2019-06-20] MEDS ORDERED: Calcium Chloride 10% 1 GM/10 ML Syringe IVPUSH ONE (20:05)
[2019-06-20] MEDS ORDERED: 50% Dextrose in Water 50 ML Syringe IVPUSH ONE ×2 (20:05→20:09)
[2019-06-20] MEDS ORDERED: Etomidate 2 MG/ML 20 ML SDV IVPUSH ONE (20:05)
[2019-06-20] MEDS ORDERED: Rocuronium 100 MG/10 ML Syringe IVPUSH ONE (20:05)
== END 2019-06-20 19:36 ==
LOC: MW.ED 17:45
DX: R41.82 Altered mental status, unspecified (principal); I13.11 Hypertensive heart and chronic kidney disease without heart failure, with stage 5 chronic kidney disease, or end stage renal disease; E11.22 Type 2 diabetes mellitus with diabetic chronic kidney disease; N18.6 End stage renal disease; I50.9 Heart failure, unspecified; D63.1 Anemia in chronic kidney disease; E16.2 Hypoglycemia, unspecified; R79.89 Other specified abnormal findings of blood chemistry; I11.0 Hypertensive heart disease with heart failure; J44.9 Chronic obstructive pulmonary disease, unspecified; E11.9 Type 2 diabetes mellitus without complications; F41.9 Anxiety disorder, unspecified; F32.9 Major depressive disorder, single episode, unspecified; E78.00 Pure hypercholesterolemia, unspecified; Z99.2 Dependence on renal dialysis; Z98.2 Presence of cerebrospinal fluid drainage device; Z79.899 Other long term (current) drug therapy; Z79.82 Long term (current) use of aspirin; Z79.4 Long term (current) use of insulin
CPT/HCPCS: 31500; 36415; 71045; 80053; 81001; 82962; 84484; 85025; 85610; 93005; 96374; 96375; 99285; J3490; J7060

== ENCOUNTER 2019-07-15 13:28 | Emergency (ER) | payer OTHER ==
[2019-07-15] MEDS ORDERED: Sodium Chloride 0.9% 2.5 ML Syringe FLUSH PRN (13:30)
[2019-07-15] MEDS ORDERED: Sodium Chloride 0.9% 10 ML Syringe FLUSH PRN (13:30)
--- NOTE | 2019-07-15 13:33 | EDM.PDOC ---
<Adina Dexter - Last Filed: 07/15/19 15:06> ED HPI GENERAL MEDICAL PROBLEM - General Chief Complaint: General Stated Complaint: LOW HEMOGLOBIN Time Seen by Provider: 07/15/19 13:33 Source of Information: Reports: Patient History Limitations: Reports: No Limitations - History of Present Illness INITIAL COMMENTS - FREE TEXT/NARRATIVE: HISTORY AND PHYSICAL: History of present illness: Patient is a 63-year-old female patient of [facility] reports to ED for concern of low hemoglobin. Per nursing, patient had a hemoglobin of 6.7 two days ago, she was to have labs redrawn today. Patient had dialysis this morning and had labs drawn but these are sent out and unable to get the result of them today so her PCP advised to bring her to the ED for evaluation. Patient has history of diabetes, hypertension, CHF, and renal failure on dialysis. does not she has been having loose dark stools for the past few days but attributed this to iron supplements. Review of systems: As per history of present illness and below otherwise all systems reviewed and negative. Past medical history: As per history of present illness and as reviewed below otherwise noncontributory. Surgical history: As per history of present illness and as reviewed below otherwise noncontributory. Social history: No reported history of drug or alcohol abuse. Family history: As per history of present illness and as reviewed below otherwise noncontributory. Physical exam: General: Patient sitting comfortably in no acute distress and nontoxic appearing HEENT: Atraumatic, normocephalic, pupils reactive, negative for conjunctival pallor or scleral icterus, mucous membranes moist, throat clear, neck supple, nontender, trachea midline. No meningeal signs. Lungs: Clear to auscultation, breath sounds equal bilaterally, chest nontender. Heart: S1S2, regular, negative for clicks, rubs, or overt murmur. Abdomen: Soft, nondistended, nontender. Negative for masses or hepatosplenomegaly. Negative for costovertebral tenderness. No rigidity, rebound , guarding. Pelvis: Stable nontender. Genitourinary: Deferred. Rectal: Deferred. Extremities: Atraumatic, negative for cords or calf pain. Neurovascular unremarkable. Neuro: Awake, alert, oriented. Cranial nerves II through XII unremarkable. Cerebellum unremarkable. Motor and sensory unremarkable throughout. Exam nonfocal. Notes: Diagnostics: CBC, CMP, PT/INR, Type and Screen Hemoccult positive Therapeutics: 500mL NS IV maintenance 1U PRBCs Prescriptions: Impression: [] Plan: [] Definitive disposition and diagnosis as appropriate pending reevaluation and review of above. - Related Data Allergies Allergy/AdvReac Type Severity Reaction Status Date / Time No Known Allergies Allergy Verified 07/15/19 13:39 Home Meds: Home Meds PARoxetine HCl [Paxil] 40 mg PO BEDTIME 05/20/14 [History] Simvastatin [Zocor] 40 mg PO BEDTIME 05/20/14 [History] Aspirin 81 mg PO DAILY 10/09/17 [History] Insulin Glargine,Hum.Rec.Anlog [Basaglar Kwikpen U-100] 15 units SQ QAM [History] Insulin Aspart [NovoLOG] See Protocol SUBCUT ASDIRECTED 11/26/18 [History] Acetaminophen 500 mg PO Q6H PRN 07/15/19 [History] Amino Acids/Protein Hydrolys [Prosource No Carb Liquid Pkt] 30 ml PO BEDTIME 12/27 [History] Biotin/FA/Vit C/Vit B Complex [Nephrocaps] 1 tab PO DAILY 07/15/19 [History] Levothyroxine 25 mcg PO ACBREAKFAST 07/15/19 [History] Metoprolol Tartrate 12.5 mg PO BID 07/15/19 [History] Past Medical History HEENT History: Reports: Cataract Cardiovascular History: Reports: Heart Failure, High Cholesterol, Hypertension Respiratory History: Reports: COPD Other Respiratory History: told she has "lung abnormalities", was supposed to have pulmunary fuction testing, but didn't make the appt. 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: Musculoskeletal History: Reports: Back Pain, Chronic Neurological History: Reports: None Psychiatric History: Reports: Anxiety, Depression, Mood Swings Endocrine/Metabolic History: Reports: Diabetes, Type II Hematologic History: Reports: Anemia, Blood Transfusion(s) Other Hematologic History: 2 blood transfusions in lifetime Immunologic History: Reports: None Oncologic (Cancer) History: Reports: None Dermatologic History: Reports: None - Infectious Disease History Infectious Disease History: Reports: Shingles - Past Surgical History Head Surgeries/Procedures: Reports: None HEENT Surgical History: Reports: Cataract Surgery Cardiovascular Surgical History: Reports: None Respiratory Surgical History: Reports: None GI Surgical History: Reports: None Endocrine Surgical History: Reports: None Musculoskeletal Surgical History: Reports: None Social & Family History - Family History Family Medical History: Noncontributory - Caffeine Use Caffeine Use: Reports: Coffee ED ROS GENERAL - Review of Systems Review Of Systems: Comprehensive ROS is negative, except as noted in HPI. ED EXAM, GENERAL - Physical Exam Exam: See Below (see dictation) Course - Vital Signs Last Recorded V/S: Last Vital Signs Temp 35.7 C 07/15/19 13:41 Pulse 77 07/15/19 15:01 Resp 16 07/15/19 15:01 BP 124/74 07/15/19 15:01 Pulse Ox 94 L 07/15/19 15:01 - Orders/Labs/Meds Orders: Active Orders 24 hr Category Date Time Status EKG Documentation Completion [RC] STAT Care 07/15/19 13:30 Active RED BLOOD CELLS LP [BBK] Stat Lab 07/15/19 13:44 Results TYPE AND SCREEN [BBK] Stat Lab 07/15/19 13:44 Results Sodium Chloride 0.9% [Normal Saline] 500 ml Med 07/15/19 14:45 Active IV STAT Sodium Chloride 0.9% [Saline Flush] Med 07/15/19 13:30 Active 10 ml FLUSH ASDIRECTED PRN Sodium Chloride 0.9% [Saline Flush] Med 07/15/19 13:30 Active 2.5 ml FLUSH ASDIRECTED PRN Saline Lock Insert [OM.PC] Stat Oth 07/15/19 13:30 Ordered Medication Orders Sodium Chloride (Normal Saline) 500 mls @ 999 mls/hr IV STAT BELLA Last Infusion: 07/15/19 14:57 Dose: 125 mls/hr Admin: 07/15/19 14:56 Dose: 999 mls/hr Sodium Chloride (Saline Flush) 10 ml FLUSH ASDIRECTED PRN PRN Reason: Keep Vein Open Last Admin: 07/15/19 14:57 Dose: 10 ml Sodium Chloride (Saline Flush) 2.5 ml FLUSH ASDIRECTED PRN PRN Reason: Keep Vein Open Labs: Laboratory Tests 07/15/19 07/15/19 07/15/19 Range/Units 13:43 13:44 13:44 WBC 6.86 (4.0-11.0) K/uL RBC 2.26 L (4.30-5.90) M/uL Hgb 7.6 L (12.0-16.0) g/dL Hct 22.7 L (36.0-46.0) % MCV 100.4 H (80.0-98.0) fL MCH 33.6 H (27.0-32.0) pg MCHC 33.5 (31.0-37.0) g/dL RDW Std Deviation 55.9 (28.0-62.0) fl RDW Coeff of Saul 16 H (11.0-15.0) % Plt Count 129 L (150-400) K/uL MPV 10.00 (7.40-12.00) fL Neut % (Auto) 78.3 (48.0-80.0) % Lymph % (Auto) 9.9 L (16.0-40.0) % Wilson % (Auto) 9.5 (0.0-15.0) % Eos % (Auto) 2.0 (0.0-7.0) % Baso % (Auto) 0.3 (0.0-1.5) % Neut # (Auto) 5.4 (1.4-5.7) K/uL Lymph # (Auto) 0.7 (0.6-2.4) K/uL Wilson # (Auto) 0.7 (0.0-0.8) K/uL Eos # (Auto) 0.1 (0.0-0.7) K/uL Baso # (Auto) 0.0 (0.0-0.1) K/uL Nucleated RBC % 0.5 /100WBC Nucleated RBCs # 0 K/uL INR 1.26 Sodium (136-145) mmol/L Potassium (3.5-5.1) mmol/L Chloride (98-107) mmol/L Carbon Dioxide (21.0-32.0) mmol/L BUN (7.0-18.0) mg/dL Creatinine (0.6-1.0) mg/dL Est Cr Clr Drug Dosing mL/min Estimated GFR (MDRD) ml/min Glucose (74-106) mg/dL POC Glucose 236 H (60-110) mg/dL Calcium (8.5-10.1) mg/dL Total Bilirubin (0.2-1.0) mg/dL AST (15-37) IU/L ALT (14-63) IU/L Alkaline Phosphatase (46-116) U/L Total Protein (6.4-8.2) g/dL Albumin (3.4-5.0) g/dL Globulin (2.6-4.0) g/dL Albumin/Globulin Ratio (0.9-1.6) Blood Type Antibody Screen Crossmatch 07/15/19 07/15/19 Range/Units 13:44 13:44 WBC (4.0-11.0) K/uL RBC (4.30-5.90) M/uL Hgb (12.0-16.0) g/dL Hct (36.0-46.0) % MCV (80.0-98.0) fL MCH (27.0-32.0) pg MCHC (31.0-37.0) g/dL RDW Std Deviation (28.0-62.0) fl RDW Coeff of Saul (11.0-15.0) % Plt Count (150-400) K/uL MPV (7.40-12.00) fL Neut % (Auto) (48.0-80.0) % Lymph % (Auto) (16.0-40.0) % Wilson % (Auto) (0.0-15.0) % Eos % (Auto) (0.0-7.0) % Baso % (Auto) (0.0-1.5) % Neut # (Auto) (1.4-5.7) K/uL Lymph # (Auto) (0.6-2.4) K/uL Wilson # (Auto) (0.0-0.8) K/uL Eos # (Auto) (0.0-0.7) K/uL Baso # (Auto) (0.0-0.1) K/uL Nucleated RBC % /100WBC Nucleated RBCs # K/uL INR Sodium 137 (136-145) mmol/L Potassium 3.1 L (3.5-5.1) mmol/L Chloride 99 (98-107) mmol/L Carbon Dioxide 32.1 H (21.0-32.0) mmol/L BUN 13 (7.0-18.0) mg/dL Creatinine 1.6 H (0.6-1.0) mg/dL Est Cr Clr Drug Dosing 28.83 mL/min Estimated GFR (MDRD) 32.7 ml/min Glucose 222 H (74-106) mg/dL POC Glucose (60-110) mg/dL Calcium 7.9 L (8.5-10.1) mg/dL Total Bilirubin 0.8 (0.2-1.0) mg/dL AST 46 H (15-37) IU/L ALT 21 (14-63) IU/L Alkaline Phosphatase 531 H (46-116) U/L Total Protein 6.8 (6.4-8.2) g/dL Albumin 2.2 L (3.4-5.0) g/dL Globulin 4.6 H (2.6-4.0) g/dL Albumin/Globulin Ratio 0.5 L (0.9-1.6) Blood Type A POSITIVE Antibody Screen NEGATIVE Crossmatch See Detail Meds: Medications Generic Name Dose Route Start Last Admin Trade Name Freq PRN Reason Stop Dose Admin Sodium Chloride 500 mls @ 999 mls/hr 07/15/19 14:45 07/15/19 14:57 Normal Saline IV 125 mls/hr STAT BELLA Infusion Sodium Chloride 10 ml 07/15/19 13:30 07/15/19 14:57 Saline Flush FLUSH 10 ml ASDIRECTED PRN Administration Keep Vein Open Sodium Chloride 2.5 ml 07/15/19 13:30 Saline Flush FLUSH ASDIRECTED PRN Keep Vein Open Discontinued Medications Generic Name Dose Route Start Last Admin Trade Name Freq PRN Reason Stop Dose Admin Pantoprazole Sodium 80 mg/ 20 mls @ 420 mls/hr 07/15/19 16:05 Sodium Chloride IVPUSH 07/15/19 16:07 ONETIME ONE Morphine Sulfate 2 mg 07/15/19 14:37 07/15/19 14:56 Morphine IVPUSH 07/15/19 14:38 2 mg ONETIME ONE Administration Departure - Departure Disposition: DC/Tfer to [facility] 02 Clinical Impression: GI hemorrhage, Chronic renal failure - Discharge Information Referrals: PCP,Unobtain [Primary Care Provider] - Forms: ED Department Discharge <Pj Maxwell - Last Filed: 07/15/19 16:08> Departure - Departure Time of Disposition: 16:07 Condition: Good
[2019-07-15 14:15] LABS: CARBON DIOXIDE,CO2 32.1 mmol/L (21.0-32.0); POTASSIUM,K 3.1 mmol/L (3.5-5.1)
[2019-07-15] MEDS ORDERED: Morphine 2 MG/ML Syringe IVPUSH ONE (14:37)
[2019-07-15] MEDS ORDERED: Sodium Chloride 0.9% 500 ML IV SCH (14:45)
[2019-07-15] MEDS ORDERED: Pantoprazole 80 MG in Sodium Chloride 0.9% 20 ML IVPUSH ONE (16:05)
[2019-07-15 16:18] VITALS: BP 127/59; PULSE 72
== END 2019-07-15 16:50 ==
LOC: MW.ED 13:28
DX: K92.2 Gastrointestinal hemorrhage, unspecified (principal); E11.22 Type 2 diabetes mellitus with diabetic chronic kidney disease; I13.0 Hypertensive heart and chronic kidney disease with heart failure and stage 1 through stage 4 chronic kidney disease, or unspecified chronic kidney disease; N18.9 Chronic kidney disease, unspecified; I50.9 Heart failure, unspecified; D63.1 Anemia in chronic kidney disease; E78.00 Pure hypercholesterolemia, unspecified; J44.9 Chronic obstructive pulmonary disease, unspecified; F41.9 Anxiety disorder, unspecified; F32.9 Major depressive disorder, single episode, unspecified; Z79.899 Other long term (current) drug therapy; Z79.4 Long term (current) use of insulin; Z79.82 Long term (current) use of aspirin
CPT/HCPCS: 36415; 80053; 82962; 85025; 85610; 86850; 86900; 86901; 86920; 86921; 86922; 93005; 96361; 96374; 96375; 99285; C9113; J2270; J7040